=== PATIENT | male | born 1955 | race American Indian/Alaskan Native ===

== ENCOUNTER 2017-10-05 23:39 | Inpatient (IN) | payer MEDICAID, OTHER ==
[2017-10-06] MEDS ORDERED: Labetalol 5 mg/ml Inj 20ML IV STA (00:04)
[2017-10-06] MEDS ORDERED: Nitroglycerin 2% Ointment Foilpak UD TOP STA (00:05)
--- NOTE | 2017-10-06 00:12 | ED PDOC ---
Arrival/HPI - General Chief Complaint: Respiratory Distress Time Seen by Provider: 10/05/17 23:43 Historian: Patient, EMS - History of Present Illness Narrative History of Present Illness (Text): 10/06/17 00:22 62 year old male, with no significant past medical history, was brought in by EMS to the Emergency department for respiratory distress prior to arrival. As per ALS, patient was administered 2 tablets of sublingual nitroglycerin and later administered 40mcg/min nitroglycerin drip for a total of 2.6 mL in field. Patient was also administered 20mg of IV lasix and 2mg of IV versed in field. As per ALS, patient's BP on scene was 246/154. Patient is currently in mild respiratory distress and is unable to speak in full sentences. Patient denies any chest pain, abdominal pain, fever, chills, nausea, vomiting, diarrhea, trauma or any other complaints. Symptom Onset: Gradual Symptom Course: Unchanged Activities at Onset: Light Context: Home Past Medical History - Provider Review Nursing Documentation Reviewed: Yes - Infectious Disease Hx of Infectious Diseases: None - Psychiatric Hx Substance Use: No Family/Social History - Physician Review Nursing Documentation Reviewed: Yes Family/Social History: No Known Family HX Smoking Status: Heavy Smoker > 10 Cigarettes Daily Hx Alcohol Use: Yes Frequency of alcohol use: Few days per week Hx Substance Use: No Allergies/Home Meds Allergies/Adverse Reactions: Allergies No Known Allergies Allergy (Verified 10/06/17 00:02) Home Medications: Home Meds Medication Instructions Recorded Confirmed No Known Home Med 10/06/17 10/06/17 Review of Systems - Physician Review All systems were reviewed & negative as marked: Yes - Review of Systems Constitutional: Normal Eyes: Normal ENT: Normal Respiratory: SOB, Other (Respiratory distress ) Cardiovascular: Normal. absent: Chest Pain Gastrointestinal: Normal. absent: Abdominal Pain, Nausea, Vomiting Genitourinary Male: Normal Musculoskeletal: Normal Skin: Normal Neurological: Normal Endocrine: Normal Hemo/Lymphatic: Normal Psychiatric: Normal Physical Exam Vital Signs Reviewed: Yes Vital Signs Pulse Resp BP Pulse Ox 10/06/17 01:26 20 100 10/06/17 01:25 78 18 124/89 100 10/06/17 00:37 77 22 125/87 100 10/06/17 00:31 77 22 130/92 H 98 10/06/17 00:15 108 H 166/119 H 10/06/17 00:01 126 H 24 169/119 H 99 10/05/17 23:42 116 H 30 H 176/119 H 99 Blood Pressure: Hypertensive Pulse: Tachycardic Respiratory Rate: Tachypneic Appearance: Positive for: Other (Respiratory distress ) Pain Distress: None Mental Status: Positive for: Alert and Oriented X 3 - Systems Exam Head: Present: Atraumatic, Normocephalic Pupils: Present: PERRL Extroacular Muscles: Present: EOMI Conjunctiva: Present: Normal Mouth: Present: Moist Mucous Membranes Neck: Present: Normal Range of Motion Respiratory/Chest: Present: Respiratory Distress (Mild respiratory distress), Decreased Breath Sounds (bilaterally at bases ), Tachypneic. No: Accessory Muscle Use Cardiovascular: Present: Normal S1, S2, Tachycardic. No: Murmurs Abdomen: Present: Normal Bowel Sounds. No: Tenderness, Distention, Peritoneal Signs Back: Present: Normal Inspection Upper Extremity: Present: Normal Inspection. No: Cyanosis, Edema Lower Extremity: Present: Normal Inspection. No: Edema Neurological: Present: GCS=15, CN II-XII Intact Skin: Present: Warm, Dry, Normal Color. No: Rashes Psychiatric: Present: Alert, Oriented x 3, Normal Insight, Normal Concentration Medical Decision Making ED Course and Treatment: 10/06/17 00:15 Impression: 62 year old male presents to the Emergency department for respiratory distress. Plan: -- VBG -- Labs -- Chest X-ray -- Aspirin -- Nitroglycerin -- Trandate -- BIPAP/CPAP -- Reassess and disposition Progress Notes: 10/06/17 00:17 - Lab Interpretations Lab Results: 10/06/17 00:23 10/06/17 00:23 Lab Results 10/06/17 00:36: pCO2 39, pO2 107.0 H, HCO3 23.1, ABG pH 7.38, ABG Total CO2 24.3 , ABG O2 Saturation 98.9 H, ABG O2 Content 18.4, ABG Base Excess -1.8, ABG Hemoglobin 13.5, ABG Carboxyhemoglobin 1.9 H, POC ABG HHb (Measured) 1.1, ABG Methemoglobin 0.6, ABG O2 Capacity 18.6, Hgb O2 Saturation 96.4, FiO2 50.0 10/06/17 00:23: Sodium 143, Potassium 3.9, Chloride 106, Carbon Dioxide 24, Anion Gap 18, BUN 13, Creatinine 0.9, Est GFR ( Amer) > 60, Est GFR (Non- Af Amer) > 60, Random Glucose 206 H, Calcium 9.2, Total Bilirubin 0.7, AST 50, ALT 32, Alkaline Phosphatase 124, Troponin I 0.04, NT-Pro-B Natriuret Pep 6330 H , Total Protein 7.3, Albumin 4.0, Globulin 3.3, Albumin/Globulin Ratio 1.2 10/06/17 00:23: WBC 5.0, RBC 4.42, Hgb 13.7 L, Hct 42.2, MCV 95.5, MCH 31.0, MCHC 32.5, RDW 15.3 H, Plt Count 267, MPV 10.2, Gran % 56.6, Lymph % (Auto) 34.7 , [place] % (Auto) 7.5 H, Eos % (Auto) 1.0 L, Baso % (Auto) 0.2, Gran # 2.80, Lymph # 1.7, [place] # 0.4, Eos # 0.1, Baso # 0.01 - RAD Interpretation Radiology Orders: 10/06/17 00:02 CHEST PORTABLE [RAD] Stat - Medication Orders Current Medication Orders: Discontinued Medications Aspirin (Aspirin) 325 mg PO STAT STA Stop: 10/06/17 00:06 Last Admin: 10/06/17 00:18 Dose: 325 mg Labetalol HCl (Trandate) 20 mg IV STAT STA Stop: 10/06/17 00:05 Last Admin: 10/06/17 00:15 Dose: 20 mg eMAR Start Stop Document 10/06/17 00:15 SS (Rec: 10/06/17 00:30 SS [id number]) Intravenous Solution Start Date 10/06/17 Start Time 00:15 End Date 10/06/17 End time 00:17 Total Infusion Time 2 MAR Pulse and Blood Pressure Document 10/06/17 00:15 SS (Rec: 10/06/17 00:30 SS [id number]) Pulse Pulse Rate (60-90) 108 Blood Pressure Blood Pressure (100/60-150/90) 166/119 Nitroglycerin (Nitro-Bid 2% Oint) 1 ea TOP STAT STA Stop: 10/06/17 00:06 Last Admin: 10/06/17 00:28 Dose: 1 ea - Scribe Statement The provider has reviewed the documentation as recorded by the Scribe Dennis Burton. All medical record entries made by the Scribe were at my direction and personally dictated by me. I have reviewed the chart and agree that the record accurately reflects my personal performance of the history, physical exam, medical decision making, and the department course for this patient. I have also personally directed, reviewed, and agree with the discharge instructions and disposition. Disposition/Present on Arrival - Present on Arrival Any Indicators Present on Arrival: No History of DVT/PE: No History of Uncontrolled Diabetes: No Urinary Catheter: No History of Decub. Ulcer: No History Surgical Site Infection Following: None - Disposition Have Diagnosis and Disposition been Completed?: Yes Diagnosis: Pulmonary edema, Hypertension Disposition: HOSPITALIZED Disposition Time: 01:40 Patient Plan: Telemetry Condition: IMPROVED Forms: [facility] ([place])
[2017-10-06 00:39] LABS: ARTERIAL BLOOD GAS HCO3 23.1 mmol/L (21-28); ARTERIAL BLOOD GAS HEMOGLOBIN 13.5 g/dL (11.7-17.4); ARTERIAL BLOOD GAS O2 CAPACITY 18.6 mL/dl (16-24); ARTERIAL BLOOD GAS O2 CONTENT 18.4 ML/dl (15-23); ARTERIAL BLOOD GAS O2 SAT 98.9 % (95-98); ARTERIAL BLOOD GAS PCO2 39 mm/Hg (35-45); ARTERIAL BLOOD GAS PH 7.38 (7.35-7.45); ARTERIAL BLOOD GAS TCO2 24.3 mmol.L (22-28)
[2017-10-06 00:52] LABS: GRAN % 56.6 % (50.0-68.0); HEMOGLOBIN 13.7 g/dL (14.0-18.0); LYMPH % 34.7 % (22.0-35.0); MEAN CELL VOLUME 95.5 fl (80.0-105.0); MEAN CORPUSCULAR HGB CONC 32.5 g/dl (31.0-37.0); MEAN PLATELET VOLUME 10.2 fl (7.0-11.0); MONO % 7.5 % (1.0-6.0); RBC 4.42 10^6/uL (3.5-6.1); RED CELL DISTRIBUTION WIDTH 15.3 % (11.5-14.5)
[2017-10-06 00:53] LABS: BASO # 0.01 K/mm3 (0.0-2.0); BASO % 0.2 % (0.0-3.0); EOS # 0.1 (0.0-0.7); GRAN # 2.8 (1.4-6.5); LYMPH # 1.7 (1.2-3.4); MONO # 0.4 (0.1-0.6)
[2017-10-06 00:58] LABS: CALCIUM 9.2 mg/dL (8.4-10.5); GFR AFRICAN-AMERICAN > 60; GFR NON-AFRICAN AMERICAN > 60
[2017-10-06 01:09] LABS: B-TYPE NATRIURETIC PEPTIDE 6330 pg/mL (0-450); TROPONIN I 0.04 ng/mL
[2017-10-06 01:17] LABS: ALB/GLOB RATIO 1.2 (1.1-1.8); ALT/SGPT 32 U/L (7-56); AST/SGOT 50 U/L (17-59); BLOOD UREA NITROGEN 13 mg/dL (7-21)
--- NOTE | 2017-10-06 01:49 | CP.PCM.HP ---
<Kirt Albright - Last Filed: 10/06/17 02:07> History of Present Illness - History of Present Illness History of Present Illness: CC: SOB Subjective: HPI: Patient is a 62 year old male with no significant past medical history who presents to the emergency department for evaluation and treatment of SOB. Was visiting a friend in [place] from [place], [place] when his persistent cough led to worsening SOB. As per Ed physician, the patient was brought in by EMS from his friend's home where he was having difficulty breathing. He was found to have a BP of 246/154 and was started on a nitroglycerin drip, given lasix, and versed in the field. He was originally in respiratory distress and was placed on bipap and eventually moved to a venturi mask followed by a face mask. Patient is now able to speak in full sentences without feeling SOB. Admits to fever, chills and productive cough which began 1 week ago without any specific provoking events. Denies recent travel and sick contacts. Symptoms worsened since onset and became associated with [facility] in the past 2 days. Does not follow with PCP. Patient denies intractable headache, dizziness, blurry vision, ringing in the ears, abdominal pain, nausea, vomiting, diarrhea, constipation, and urinary symptoms. ROS: 12 point review of systems negative except as indicated in HPI PMHx: denies PSHx: denies Family Hx: noncontributory Social Hx: drink 1 pint of vodka on weekends and 1/2 pint on the weekdays for several years, smokes 1/3 ppd for 30 years, denies illicit drug use Medications: does not take medications at home PMD: does not have established PMD Pharmacy: does not fill medications Physical Examination: - Constitutional Appears: Non-toxic, No Acute Distress - Head Exam Head Exam: atraumatic, normocephalic - Eye Exam Eye Exam: Normal appearance, PERRL. absent: Scleral icterus - ENT Exam ENT Exam: Mucous Membranes Moist - Neck Exam Neck exam: Normal Inspection - Respiratory Exam Respiratory Exam: diminished breath sounds bilaterally, faint bibasilar crackles noted, Normal Breathing Pattern - Cardiovascular Exam Cardiovascular Exam: +S1, +S2. absent: Gallop, JVD - GI/Abdominal Exam GI & Abdominal Exam: Normal Bowel Sounds, absent: Distended, Guarding, Pulsatile Mass, Rebound, Rigid - Extremities Exam Extremities exam: Negative for: calf tenderness - Neurological Exam Neurological exam: Patient is awake, alert, responds to verbal stimuli, answers questions appropriately, follows commands, and moves extremities past midline - Psychiatric Exam Psychiatric exam: Normal Affect, Normal Mood - Skin Skin Exam: warm and dry Assessment and Plan: Patient is a 62 year old male with no significant past medical history who was admitted for evaluation and treatment of SOB. Hypertensive Emergency - BP controlled in ED after being given labetolol - lasix 20 IV q12 with hold parameters - prn hydralazine placed with hold parameters Presumed CHF Exacerbation - HR and BP reviewed, trended, and appreciated - bnp 6330 - strict i and o - daily weight - lasix 20mg IV q12 - ECHO pending - cardio isoezymes ordered and pending - cardiology consulted- appreciate recommendations Persumed COPD Exacerbation - xopenox and atorvent q4 scheduled - oxygen supplementation 2 L via NC - abg reviewed and appreciated, repeat abg in AM Ethanol Abuse, Potential Withdrawal - CIWA - ETOH level pending - high risk fall precautions - ativan 1mg q6 prn withdrawl symptoms - consider adding librium or geodon if sxs are not controlled - multivitamin, thiamine, and folate supplement Anemia - Hgb reviewed and appreciated - monitor closely via CBC Tobacco Abuse - nicotine patch offered - smoking cessation advised - patient education provided on dangers of tobacco abuse Prophylaxis - DVT ppx- scds - GI ppx- famotidine Patient case discussed with and plan approved by attending physician. Present on Admission - Present on Admission Any Indicators Present on Admission: No Past Patient History - Infectious Disease Hx of Infectious Diseases: None - Past Social History Smoking Status: Heavy Smoker > 10 Cigarettes Daily - PSYCHIATRIC Hx Substance Use: No Meds Allergies/Adverse Reactions: Allergies Allergy/AdvReac Type Severity Reaction Status Date / Time No Known Allergies Allergy Verified 10/06/17 00:02 Results - Vital Signs Recent Vital Signs: Last Vital Signs Temp Pulse 78 10/06/17 01:25 Resp 20 10/06/17 01:26 BP 124/89 10/06/17 01:25 Pulse Ox 100 10/06/17 01:26 - Labs Result Diagrams: 10/06/17 00:23 10/06/17 00:23 Labs: Laboratory Results - last 24 hr 10/06/17 10/06/17 10/06/17 00:23 00:23 00:36 WBC 5.0 RBC 4.42 Hgb 13.7 L Hct 42.2 MCV 95.5 MCH 31.0 MCHC 32.5 RDW 15.3 H Plt Count 267 MPV 10.2 Gran % 56.6 Lymph % (Auto) 34.7 [place] % (Auto) 7.5 H Eos % (Auto) 1.0 L Baso % (Auto) 0.2 Gran # 2.80 Lymph # 1.7 [place] # 0.4 Eos # 0.1 Baso # 0.01 pCO2 39 pO2 107.0 H HCO3 23.1 ABG pH 7.38 ABG Total CO2 24.3 ABG O2 Saturation 98.9 H ABG O2 Content 18.4 ABG Base Excess -1.8 ABG Hemoglobin 13.5 ABG Carboxyhemoglobin 1.9 H POC ABG HHb (Measured) 1.1 ABG Methemoglobin 0.6 ABG O2 Capacity 18.6 Hgb O2 Saturation 96.4 FiO2 50.0 Sodium 143 Potassium 3.9 Chloride 106 Carbon Dioxide 24 Anion Gap 18 BUN 13 Creatinine 0.9 Est GFR ( Amer) > 60 Est GFR (Non-Af Amer) > 60 Random Glucose 206 H Calcium 9.2 Total Bilirubin 0.7 AST 50 ALT 32 Alkaline Phosphatase 124 Troponin I 0.04 NT-Pro-B Natriuret Pep 6330 H Total Protein 7.3 Albumin 4.0 Globulin 3.3 Albumin/Globulin Ratio 1.2 <Naida Howell - Last Filed: 10/06/17 03:16> Results - Vital Signs Recent Vital Signs: Last Vital Signs Temp Pulse 78 10/06/17 01:25 Resp 20 10/06/17 01:26 BP 124/89 10/06/17 01:25 Pulse Ox 100 10/06/17 01:26 - Labs Result Diagrams: 10/06/17 00:23 10/06/17 00:23 Attending/Attestation - Attestation I have personally seen and examined this patient.: Yes I have fully participated in the care of the patient.: Yes I have reviewed all pertinent clinical information: Yes Notes (Text): 10/06/17 03:15 Patient was seen when he was in bed # 7 in the ER. Agree with history,physical examination, assessment and plan.
[2017-10-06] MEDS ORDERED: Influenza Vaccine 60 mcg/0.5 mL SYR (4YR UP) IM ONE (03:45)
[2017-10-06 06:38] LABS: BASO # 0.01 K/mm3 (0.0-2.0); BASO % 0.2 % (0.0-3.0); EOS % 0.3 % (1.5-5.0); GRAN # 4.11 (1.4-6.5); GRAN % 63.5 % (50.0-68.0); LYMPH # 1.8 (1.2-3.4); LYMPH % 28.4 % (22.0-35.0); MEAN CELL VOLUME 94.8 fl (80.0-105.0); MEAN CORPUSCULAR HEMOGLOBIN 30.7 pg (25.0-35.0); MEAN CORPUSCULAR HGB CONC 32.4 g/dl (31.0-37.0); MEAN PLATELET VOLUME 10.1 fl (7.0-11.0); MONO # 0.5 (0.1-0.6); MONO % 7.6 % (1.0-6.0); RBC 4.23 10^6/uL (3.5-6.1); RED CELL DISTRIBUTION WIDTH 15.2 % (11.5-14.5); WHITE BLOOD COUNT 6.5 10^3/ul (4.5-11.0)
[2017-10-06 07:06] LABS: TROPONIN I 0.05 ng/mL
[2017-10-06 07:12] LABS: ALB/GLOB RATIO 1.2 (1.1-1.8); ALBUMIN 3.5 g/dL (3.0-4.8); ALT/SGPT 32 U/L (7-56); AST/SGOT 37 U/L (17-59); BLOOD UREA NITROGEN 14 mg/dL (7-21); GFR AFRICAN-AMERICAN > 60; GFR NON-AFRICAN AMERICAN > 60; HDL CHOLESTEROL 36 mg/dL (29-60); MAGNESIUM 1.7 mg/dL (1.7-2.2)
[2017-10-06 07:19] LABS: LDL CHOLESTEROL 124 mg/dL (0-129)
[2017-10-06] MEDS: Levalbuterol 1.25 MG/3 ML Inhal Soln UD IH SCH ×3 (08:18→19:37)
[2017-10-06] MEDS: Ipratropium 0.02% Inhal Soln (0.5 mg/2.5 ml) UD IH SCH ×3 (08:18→19:37)
--- NOTE | 2017-10-06 08:35 | RAD ---
HISTORY: Shortness of breath COMPARISON: No prior. FINDINGS: LUNGS: There is severe pulmonary venous congestion and mild interstitial pulmonary edema. There is bibasilar airspace disease. PLEURA: Suspect small pleural effusions, no pneumothorax apparent. CARDIOVASCULAR: Severe cardiomegaly. OSSEOUS STRUCTURES: No significant abnormalities. VISUALIZED UPPER ABDOMEN: Normal. OTHER FINDINGS: None. IMPRESSION: Severe cardiomegaly, severe pulmonary venous congestion with interstitial pulmonary edema and suspected pleural effusions concerning for congestive heart failure. Bibasilar airspace disease may represent atelectasis however superimposed pneumonia cannot be excluded. Follow-up is advised.
[2017-10-06] MEDS: Multivitamin Therapeutic Tab PO SCH (10:13)
--- NOTE | 2017-10-06 10:18 | CARD ---
APPROVED REPORT EKG Measurement Heart [id number] <Conclusion> Sinus tachycardia Left atrial enlargement Left ventricular hypertrophy T wave abnormality, consider lateral ischemia Prolonged QTc
[2017-10-06 12:03] LABS: HEPATITIS B SURFACE AG NEGATIVE (NEGATIVE)
[2017-10-06 12:08] LABS: HEPATITIS A IGM NEGATIVE (NEGATIVE); HEPATITIS B CORE AB Negative (NEGATIVE)
[2017-10-06 12:20] LABS: HEPATITIS C ANTIBODY Negative (NEGATIVE)
--- NOTE | 2017-10-06 14:56 | CARD ---
APPROVED REPORT EKG Measurement Heart [id number] <Conclusion> Sinus rhythm with premature atrial complexes Possible Left atrial enlargement LAD Left ventricular hypertrophy T wave abnormality, consider lateral ischemia Prolonged QT
--- NOTE | 2017-10-06 19:35 | CON ---
DATE: 10/06/2017 INDICATIONS: Hypertensive emergency, congestive heart failure. HISTORY OF PRESENT ILLNESS: This is a 62-year-old man who came to the Emergency Room with acute shortness of breath. 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 He is extremely hypertensive. He was treated in the field and in the Emergency Room. His blood pressure is improved. He is no longer symptomatic on telemetry, resting comfortably in bed this morning. He was given IV Lasix, nitroglycerin drip, IV hydralazine. He complained of a sudden onset of symptoms, shortness of breath with coughing and some cough related to chest discomfort. There was no syncope, presyncope, lightheadedness, dizziness or vertigo. No palpitations, edema or claudication. No fever, chills, hemoptysis, abdominal pain, nausea, vomiting, diarrhea, constipation, or melena. PAST MEDICAL HISTORY: Limited. It does not appear that he is under the care of the physician for any particular medical problems. He was on no medications. He denies myocardial infarction, congestive heart failure, arrhythmia, stroke, TIA, diabetes, and gout. MEDICATIONS: None. ALLERGIES: NO KNOWN MEDICATION ALLERGIES. SOCIAL HISTORY: He is a smoker. He drinks vodka on a daily basis. He lives at home. He is ambulatory. FAMILY HISTORY: Noncontributory. REVIEW OF SYSTEMS: A 10-point review of system is unremarkable except as noted above. PHYSICAL EXAMINATION: GENERAL: He is a well-developed male, lying in bed on telemetry, in no acute distress. VITAL SIGNS: This morning include sinus rhythm at 82 beats per minute. He is afebrile. Blood pressure 141/90, respirations 20, O2 sat 100% on a face mask and now nasal cannula. HEENT: Reveals no neck vein distension, thyromegaly, or carotid bruits. Mucous membranes are moist. Conjunctivae pink. NECK: Supple. LUNGS: Lung jacobson scattered rhonchi, few rales at the bases. HEART: Revealed normal first and second heart sounds. ABDOMEN: Soft. Bowel sounds present. No mass, organomegaly, tenderness, rebound, or guarding. No CVA tenderness. No palpable abdominal aortic aneurysm. EXTREMITIES: Reveals no cyanosis, clubbing, or edema. NEUROLOGIC: He was awake, alert, and oriented. PSYCHIATRIC: Normal as to mood and affect. SKIN: Warm and dry. No rashes or cellulitis. LABORATORY AND IMAGING: EKG demonstrates sinus tachycardia with LVH, ST-T wave changes. No prior EKG for comparison. A chest x-ray reveals cardiomegaly, pulmonary venous congestion, possible pleural effusions, bilateral airspace disease. White count normal, hemoglobin 13, hematocrit 40.1, platelet count normal. Blood gas is noted. Electrolytes, BUN, creatinine, blood sugar, LFTs unremarkable. Troponin is negative x2. BNP 6330. Lipids unremarkable with a LDL of 124. Alcohol was less than 10. IMPRESSION: Gonzalo Sutton is a 62-year-old man who presents with acute shortness of breath associated with cough related chest discomfort with pulmonary edema, accelerated hypertension, which responded to therapy. He is much improved this morning. Blood pressure is better. His breathing is better. Cardiac enzymes have been unremarkable. His EKG is abnormal consistent with left ventricular hypertrophy. Chest x-ray shows cardiomegaly and congestive heart failure. At this time, I agree with current plans. We will check an echocardiogram. I will add metoprolol and amlodipine. He is getting IV Lasix. He received labetalol. He is getting Xopenex, thiamine, Pepcid and nicotine patch. He is getting folic acid and ipratropium. He received an aspirin in the Emergency Room. We will monitor Is and Os. I will repeat a troponin and an EKG. I will follow along with you and make additional recommendations based on his clinical course. He should be on no added salt diet. He should stop smoking and drinking alcohol. Gilson Redman MD [facility]
[2017-10-07] MEDS: Ipratropium 0.02% Inhal Soln (0.5 mg/2.5 ml) UD IH SCH ×4 (03:40→21:15)
[2017-10-07] MEDS: Levalbuterol 1.25 MG/3 ML Inhal Soln UD IH SCH ×4 (03:40→21:15)
[2017-10-07 07:20] LABS: ALB/GLOB RATIO 1.2 (1.1-1.8); ALBUMIN 3.5 g/dL (3.0-4.8); ALT/SGPT 38 U/L (7-56); AST/SGOT 29 U/L (17-59); BLOOD UREA NITROGEN 21 mg/dL (7-21); GFR AFRICAN-AMERICAN > 60; GFR NON-AFRICAN AMERICAN > 60
[2017-10-07] MEDS: Multivitamin Therapeutic Tab PO SCH (07:53)
[2017-10-07] MEDS ORDERED: Potassium Chloride 40 mEq/30 ml LIQ UD PO ONE (08:06)
--- NOTE | 2017-10-07 08:51 | CP.PCM.PN ---
Subjective - Date & Time of Evaluation Date of Evaluation: 10/07/17 Time of Evaluation: 07:00 - Subjective Subjective: +Stable on 2R. No CP or SOB. V/S noted. BP high at times. V/S noted. RSR PE: Lungs: few rhonchi Cor.: S1S2 Abd.: soft Ext.: no edema Neuro.: alert I/O= 360/300 recorded Labs noted: K+= 3.5 BC X 2 NG at 24 hrs. Echo done: will review. Prelim: severe LVD Objective - Vital Signs/Intake and Output Vital Signs (last 24 hours): Temp Pulse Resp BP Pulse Ox 98 F 77 20 143/100 H 100 10/07/17 06:00 10/07/17 06:00 10/07/17 06:00 10/07/17 06:00 10/07/17 00:01 Intake and Output: 10/07/17 10/07/17 06:59 18:59 Intake Total 360 Output Total 300 Balance 60 - Medications Medications: Current Medications Amlodipine Besylate (Norvasc) 5 mg PO DAILY [facility] Last Admin: 10/06/17 10:14 Dose: 5 mg Famotidine (Pepcid) 40 mg PO HS [facility] Last Admin: 10/06/17 22:13 Dose: 40 mg Folic Acid (Folic Acid) 1 mg PO DAILY [facility] Last Admin: 10/06/17 10:13 Dose: 1 mg Furosemide (Lasix) 20 mg IVP Q12 [facility] Last Admin: 10/06/17 22:11 Dose: 20 mg Hydralazine HCl (Apresoline) 10 mg IVP Q6 PRN PRN Reason: Systolic Blood Pressure Ipratropium Mcgraw (Atrovent) 0.5 mg IH [id number] [facility] Last Admin: 10/07/17 08:04 Dose: 0.5 mg Levalbuterol HCl (Xopenex) 1.25 mg IH [id number] [facility] Last Admin: 10/07/17 08:04 Dose: 1.25 mg Lorazepam (Ativan) 1 mg IVP Q6H PRN; Protocol PRN Reason: Symptoms of alcohol withdrawl Metoprolol Tartrate (Lopressor) 25 mg PO BID [facility] Last Admin: 10/06/17 18:26 Dose: 25 mg Multivitamins (Thera Tab) 1 tab PO 0800 [facility] Last Admin: 10/07/17 07:53 Dose: 1 tab Nicotine (Nicoderm Cq) 1 patch TD DAILY PRN PRN Reason: URGE TO SMOKE Thiamine HCl (Vitamin B1 Tab) 100 mg PO DAILY [facility] Last Admin: 10/06/17 10:13 Dose: 100 mg - Labs Labs: 10/06/17 06:00 10/07/17 06:00 Assessment and Plan - Assessment and Plan (Free Text) Assessment: Acute Dyspnea with CHF, accelerated Hypertension CCM: hypertensive vs ETOH related, R/O CAD Plan: Increase amlodipine to 10/day PO KCL D/C tobacco and ETOH OOB as jose d. Nuclear stress test>Monday F/U CXR
[2017-10-07] MEDS: Potassium Chloride 20 mEq ER Tab PO SCH (09:52)
--- NOTE | 2017-10-07 10:06 | CARD ---
APPROVED REPORT EXAM: Two-dimensional and M-mode echocardiogram with Doppler and color Doppler. Other Information Quality : AverageRhythm : INDICATION CHF, HBP 2D DIMENSIONS IVSd1.3 (0.7-1.1cm)LVDd5.7 (3.9-5.9cm) PWd1.3 (0.7-1.1cm)LVDs4.9 (2.5-4.0cm) FS (%) 15.0 %LVEF (%)30.0 (>50%) M-Mode DIMENSIONS Left Atrium (MM)4.20 (2.5-4.0cm)Aortic Root3.10 (2.2-3.7cm) Aortic Cusp Exc.1.90 (1.5-2.0cm) Aortic Valve AoV Peak Oswnjtau68.5cm/s Mitral Valve MV E Qvptrmlw442.0cm/sMV E Peak Gr.88mmHgMV A Mlwqxsyn01.2cm/s E/A ratio2.8 TDI Lateral E' Peak V4.49cm/sMedial E' Peak V4.20cm/sE/Lateral E'34.3 E/Medial E'36.7 Tricuspid Valve TR Peak [id number]/sRAP [id number] Peak Gr.45mmHg [id number] LEFT VENTRICLE The left ventricle is normal size. There is mild concentric left ventricular hypertrophy. Left ventricle systolic function is severely impaired. The Ejection Fraction is 25-30%. RIGHT VENTRICLE The right ventricle is normal size. ATRIA The left atrium is moderately dilated. The right atrium is moderately dilated. The interatrial septum is intact with no evidence for an atrial septal defect. AORTIC VALVE The aortic valve is mildly to moderately calcified. MITRAL VALVE The mitral valve is normal in structure. The mitral valve is moderately thickened but opens well. Mitral regurgitation is moderate. TRICUSPID VALVE The tricuspid valve is normal in structure. There is moderate tricuspid regurgitation. There is moderate pulmonary hypertension. PULMONIC VALVE The pulmonic valve is not well visualized. There is trace pulmonic valvular regurgitation. GREAT VESSELS The aortic root is normal in size. PERICARDIAL EFFUSION There is no pericardial effusion. <Conclusion> The left ventricle is normal size. There is mild concentric left ventricular hypertrophy. Left ventricle systolic function is severely impaired. The Ejection Fraction is 25-30%. Mitral regurgitation is moderate. There is moderate tricuspid regurgitation. There is moderate pulmonary hypertension.
--- NOTE | 2017-10-07 11:52 | CP.PCM.PN ---
<Starr Mariee - Last Filed: 10/07/17 14:28> Subjective - Date & Time of Evaluation Date of Evaluation: 10/07/17 Time of Evaluation: 11:50 - Subjective Subjective: PGY-2 Progress note for hospitalist service Patient was seen and examined at bedside, no acute distress. Patient states that he has not been getting out of bed and can not access if his sob has improved. He is tolerating diet. Objective - Vital Signs/Intake and Output Vital Signs (last 24 hours): Temp Pulse Resp BP Pulse Ox 98 F 74 18 152/83 H 97 10/07/17 06:00 10/07/17 09:58 10/07/17 09:00 10/07/17 09:58 10/07/17 09:00 Intake and Output: 10/07/17 10/07/17 06:59 18:59 Intake Total 360 Output Total 300 Balance 60 - Medications Medications: Current Medications Amlodipine Besylate (Norvasc) 10 mg PO DAILY [facility] Last Admin: 10/07/17 09:58 Dose: 10 mg Famotidine (Pepcid) 40 mg PO HS [facility] Last Admin: 10/06/17 22:13 Dose: 40 mg Folic Acid (Folic Acid) 1 mg PO DAILY [facility] Last Admin: 10/07/17 09:51 Dose: 1 mg Furosemide (Lasix) 20 mg IVP Q12 [facility] Last Admin: 10/07/17 09:51 Dose: 20 mg Hydralazine HCl (Apresoline) 10 mg IVP Q6 PRN PRN Reason: Systolic Blood Pressure Ipratropium [place] (Atrovent) 0.5 mg IH [id number] [facility] Last Admin: 10/07/17 08:04 Dose: 0.5 mg Levalbuterol HCl (Xopenex) 1.25 mg IH [id number] [facility] Last Admin: 10/07/17 08:04 Dose: 1.25 mg Lorazepam (Ativan) 1 mg IVP Q6H PRN; Protocol PRN Reason: Symptoms of alcohol withdrawl Metoprolol Tartrate (Lopressor) 25 mg PO BID [facility] Last Admin: 10/07/17 09:51 Dose: 25 mg Multivitamins (Thera Tab) 1 tab PO 0800 [facility] Last Admin: 10/07/17 07:53 Dose: 1 tab Nicotine (Nicoderm Cq) 1 patch TD DAILY PRN PRN Reason: URGE TO SMOKE Last Admin: 10/07/17 09:51 Dose: 1 patch Potassium Chloride (K-Dur 20 Meq Er Tab) 30 meq PO BRK [facility] Last Admin: 10/07/17 09:52 Dose: 30 meq Thiamine HCl (Vitamin B1 Tab) 100 mg PO DAILY [facility] Last Admin: 10/07/17 09:51 Dose: 100 mg - Labs Labs: 10/06/17 06:00 10/07/17 06:00 - Constitutional Appears: No Acute Distress - Head Exam Head Exam: ATRAUMATIC, NORMAL INSPECTION, NORMOCEPHALIC - Eye Exam Eye Exam: EOMI, Normal appearance - ENT Exam ENT Exam: Mucous Membranes Moist - Respiratory Exam Respiratory Exam: Clear to Ausculation Bilateral, NORMAL BREATHING PATTERN. absent: Rhonchi, Wheezes, Respiratory Distress - Cardiovascular Exam Cardiovascular Exam: REGULAR RHYTHM, +S1, +S2. absent: Tachycardia, Murmur - GI/Abdominal Exam GI & Abdominal Exam: Soft, Normal Bowel Sounds. absent: Distended, Tenderness, Hyperactive Bowel Sounds - Neurological Exam Neurological Exam: Alert, Awake, Oriented x3 - Skin Skin Exam: Dry, Intact, Normal Color, Warm Assessment and Plan - Assessment and Plan (Free Text) Assessment: Patient is a 62 year old male with no significant past medical history who was admitted for evaluation and treatment of SOB secondary to chf and possible copd exacerbation Plan: Hypertensive Emergency - BP controlled in ED after being given labetolol - started on norvasc 10 and lopressor 25 bid - continue lasix 20 IV q12 with hold parameters - prn hydralazine placed with hold parameters CHF Exacerbation - cxr on admission severe cardiomegaly, severe pulmonary venous congestion concerning for chf, bibaslier airway diseases can not r/o pne - repeat cxr showed decreased vascular congestion - HR and BP reviewed, trended, and appreciated - bnp [id number] - strict i and o - daily weight - continue lasix 20mg IV q12 - ECHO EF of 30%, mild concentric left ventricular hypertrophy, moderate TR and pulm HTN - cardio trops 0.04, 0.05 - cardiology consulted- appreciate recommendations Persumed COPD Exacerbation - xopenox and atorvent q4 scheduled - oxygen supplementation 2 L via NC - abg reviewed and appreciated Ethanol Abuse, Potential Withdrawal - CIWA - ETOH level low - high risk fall precautions - ativan 1mg q6 prn withdrawal symptoms,patient has not required any dosage - multivitamin, thiamine, and folate supplement Anemia - Hgb reviewed and appreciated - monitor closely via CBC Tobacco Abuse - nicotine patch offered - smoking cessation advised - patient education provided on dangers of tobacco abuse Prophylaxis - DVT ppx- scds - GI ppx- famotidine <Demetra Payne A - Last Filed: 10/07/17 14:58> Objective - Vital Signs/Intake and Output Vital Signs (last 24 hours): Temp Pulse Resp BP Pulse Ox 97.9 F 79 20 126/81 97 10/07/17 12:00 10/07/17 12:00 10/07/17 12:00 10/07/17 12:00 10/07/17 09:00 Intake and Output: 10/07/17 10/07/17 06:59 18:59 Intake Total 360 Output Total 300 Balance 60 - Medications Medications: Current Medications Amlodipine Besylate (Norvasc) 10 mg PO DAILY [facility] Last Admin: 10/07/17 09:58 Dose: 10 mg Famotidine (Pepcid) 40 mg PO HS [facility] Last Admin: 10/06/17 22:13 Dose: 40 mg Folic Acid (Folic Acid) 1 mg PO DAILY [facility] Last Admin: 10/07/17 09:51 Dose: 1 mg Furosemide (Lasix) 20 mg IVP Q12 [facility] Last Admin: 10/07/17 09:51 Dose: 20 mg Hydralazine HCl (Apresoline) 10 mg IVP Q6 PRN PRN Reason: Systolic Blood Pressure Ipratropium [place] (Atrovent) 0.5 mg IH [id number] [facility] Last Admin: 10/07/17 13:45 Dose: 0.5 mg Levalbuterol HCl (Xopenex) 1.25 mg IH [id number] [facility] Last Admin: 10/07/17 13:45 Dose: 1.25 mg Lorazepam (Ativan) 1 mg IVP Q6H PRN; Protocol PRN Reason: Symptoms of alcohol withdrawl Metoprolol Tartrate (Lopressor) 25 mg PO BID [facility] Last Admin: 10/07/17 09:51 Dose: 25 mg Multivitamins (Thera Tab) 1 tab PO 0800 [facility] Last Admin: 10/07/17 07:53 Dose: 1 tab Nicotine (Nicoderm Cq) 1 patch TD DAILY PRN PRN Reason: URGE TO SMOKE Last Admin: 10/07/17 09:51 Dose: 1 patch Potassium Chloride (K-Dur 20 Meq Er Tab) 30 meq PO BRK [facility] Last Admin: 10/07/17 09:52 Dose: 30 meq Thiamine HCl (Vitamin B1 Tab) 100 mg PO DAILY [facility] Last Admin: 10/07/17 09:51 Dose: 100 mg - Labs Labs: 10/06/17 06:00 10/07/17 06:00 Attending/Attestation - Attestation I have personally seen and examined this patient.: Yes I have fully participated in the care of the patient.: Yes I have reviewed all pertinent clinical information, including history, physical exam and plan: Yes Notes (Text): 10/07/17 14:54 62 year old male with no significant past medical history who presented with shortness of breath. Probnp was elevated. CXR showed severe pulmonary venous congestion. He was started on iv lasix for acute CHF exacerbation. Echocardiogram reviewed which shows EF 25-30%. Repeat CXR today reviewed shows improved congestion. Cardiology is following the plan. He also presented with uncontrolled hypertension. He is currently on norvasc and lopressor. He was counselled on alcohol abstinence. Continue with ativan prn for withdrawal symptoms. Continue with multivitamin, folic acid and thiamine. Will replete and repeat potassium. Demetra Payne MD Hospitalist.
--- NOTE | 2017-10-07 13:46 | RAD ---
HISTORY: CHF COMPARISON: Yesterday TECHNIQUE: Chest PA and lateral FINDINGS: LUNGS: There is interval improvement in aeration bilaterally from prior study. PLEURA: No significant pleural effusion identified. No pneumothorax apparent. CARDIOVASCULAR: There is decreased vascular congestion from prior study. Heart is still moderately enlarged. OSSEOUS STRUCTURES: No significant abnormalities. VISUALIZED UPPER ABDOMEN: Normal. OTHER FINDINGS: None. IMPRESSION: Decreased vascular congestion with moderate improvement in aeration.
[2017-10-07] MEDS ORDERED: Vancomycin 1gm in NS 250ml 1 GM/250 ML BAG IVPB STA (18:20)
[2017-10-08] MEDS: Ipratropium 0.02% Inhal Soln (0.5 mg/2.5 ml) UD IH SCH ×4 (03:10→20:59)
[2017-10-08] MEDS: Levalbuterol 1.25 MG/3 ML Inhal Soln UD IH SCH ×4 (03:10→20:59)
[2017-10-08 06:56] LABS: BASO # 0.02 K/mm3 (0.0-2.0); BASO % 0.4 % (0.0-3.0); EOS # 0.1 (0.0-0.7); EOS % 0.9 % (1.5-5.0); GRAN # 2.77 (1.4-6.5); GRAN % 50.4 % (50.0-68.0); HEMOGLOBIN 13.4 g/dL (14.0-18.0); LYMPH # 2.2 (1.2-3.4); LYMPH % 40.7 % (22.0-35.0); MEAN CELL VOLUME 93.8 fl (80.0-105.0); MEAN CORPUSCULAR HEMOGLOBIN 30.8 pg (25.0-35.0); MEAN CORPUSCULAR HGB CONC 32.8 g/dl (31.0-37.0); MEAN PLATELET VOLUME 10.2 fl (7.0-11.0); MONO # 0.4 (0.1-0.6); MONO % 7.6 % (1.0-6.0); RBC 4.35 10^6/uL (3.5-6.1); RED CELL DISTRIBUTION WIDTH 14.7 % (11.5-14.5); WHITE BLOOD COUNT 5.5 10^3/ul (4.5-11.0)
[2017-10-08 07:12] LABS: ALB/GLOB RATIO 1.2 (1.1-1.8); ALBUMIN 3.6 g/dL (3.0-4.8); ALT/SGPT 31 U/L (7-56); AST/SGOT 34 U/L (17-59); BLOOD UREA NITROGEN 21 mg/dL (7-21); CALCIUM 9.6 mg/dL (8.4-10.5); GFR AFRICAN-AMERICAN > 60; GFR NON-AFRICAN AMERICAN > 60
--- NOTE | 2017-10-08 07:25 | CP.PCM.PN ---
<Starr Mariee - Last Filed: 10/08/17 13:49> Subjective - Date & Time of Evaluation Date of Evaluation: 10/08/17 Time of Evaluation: 08:30 - Subjective Subjective: PGY-2 progress note for hospitalist service Patient seen and examined at bedside. No acute distress. Per nurse no acute events over night. Patient does not have any complaints. He states that his shortness of breath has improved. He is tolerating his diet. Objective - Vital Signs/Intake and Output Vital Signs (last 24 hours): Temp Pulse Resp BP Pulse Ox 98.1 F 75 18 132/85 98 10/08/17 06:00 10/08/17 06:00 10/08/17 06:00 10/08/17 06:00 10/08/17 06:00 Intake and Output: 10/08/17 10/08/17 06:59 18:59 Intake Total 490 Output Total 1420 Balance -930 - Medications Medications: Current Medications Amlodipine Besylate (Norvasc) 10 mg PO DAILY [facility] Last Admin: 10/07/17 09:58 Dose: 10 mg Famotidine (Pepcid) 40 mg PO HS [facility] Last Admin: 10/07/17 21:29 Dose: 40 mg Folic Acid (Folic Acid) 1 mg PO DAILY [facility] Last Admin: 10/07/17 09:51 Dose: 1 mg Furosemide (Lasix) 20 mg IVP Q12 [facility] Last Admin: 10/07/17 21:30 Dose: 20 mg Hydralazine HCl (Apresoline) 10 mg IVP Q6 PRN PRN Reason: Systolic Blood Pressure Ipratropium [place] (Atrovent) 0.5 mg IH [id number] [facility] Last Admin: 10/07/17 21:15 Dose: 0.5 mg Levalbuterol HCl (Xopenex) 1.25 mg IH [id number] [facility] Last Admin: 10/07/17 21:15 Dose: 1.25 mg Lorazepam (Ativan) 1 mg IVP Q6H PRN; Protocol PRN Reason: Symptoms of alcohol withdrawl Metoprolol Tartrate (Lopressor) 25 mg PO BID [facility] Last Admin: 10/07/17 17:23 Dose: 25 mg Multivitamins (Thera Tab) 1 tab PO 0800 [facility] Last Admin: 10/07/17 07:53 Dose: 1 tab Nicotine (Nicoderm Cq) 1 patch TD DAILY PRN PRN Reason: URGE TO SMOKE Last Admin: 10/07/17 09:51 Dose: 1 patch Potassium Chloride (K-Dur 20 Meq Er Tab) 30 meq PO BRK [facility] Last Admin: 10/07/17 09:52 Dose: 30 meq Thiamine HCl (Vitamin B1 Tab) 100 mg PO DAILY [facility] Last Admin: 10/07/17 09:51 Dose: 100 mg - Labs Labs: 10/06/17 06:00 10/08/17 06:30 - Constitutional Appears: No Acute Distress - Head Exam Head Exam: ATRAUMATIC, NORMAL INSPECTION, NORMOCEPHALIC - Eye Exam Eye Exam: EOMI, Normal appearance - ENT Exam ENT Exam: Mucous Membranes Moist - Respiratory Exam Respiratory Exam: Rhonchi, NORMAL BREATHING PATTERN. absent: Respiratory Distress - Cardiovascular Exam Cardiovascular Exam: REGULAR RHYTHM, +S1, +S2. absent: Tachycardia, Murmur - GI/Abdominal Exam GI & Abdominal Exam: Soft, Normal Bowel Sounds. absent: Distended, Firm, Tenderness - Extremities Exam Extremities Exam: Normal Inspection. absent: Pedal Edema - Neurological Exam Neurological Exam: Alert, Awake, Oriented x3 - Skin Skin Exam: Dry, Intact, Normal Color, Warm Assessment and Plan - Assessment and Plan (Free Text) Assessment: Patient is a 62 year old male with no significant past medical history who was admitted for evaluation and treatment of SOB secondary to chf and possible copd exacerbation found to have HTN emergency Plan: Hypertensive Emergency - BP controlled - started on norvasc 10 and lopressor 25 bid - continue lasix 20 IV q12 with hold parameters - prn hydralazine placed with hold parameters CHF Exacerbation - cxr on admission severe cardiomegaly, severe pulmonary venous congestion concerning for chf, bibaslier airway diseases can not r/o pne - repeat cxr showed decreased vascular congestion - HR and BP reviewed, trended, and appreciated - bnp [id number] - strict i and o - daily weight - continue lasix 20mg IV q12 - ECHO EF of 30%, mild concentric left ventricular hypertrophy, moderate TR and pulm HTN - cardio trops 0.04, 0.05 - cardiology consulted- recommend nuclear stress test monday Persumed COPD Exacerbation - xopenox and atorvent q4 scheduled - oxygen supplementation 2 L via NC - abg reviewed and appreciated questionable bactremia - positive blood culture in 1 bottle, gram positive cocci coagulase negative - most likely contamination, 2nd bottle negative - 1 dose vancomycin given - repeat blood cultures Ethanol Abuse, Potential Withdrawal - CIWA - ETOH level low - high risk fall precautions - ativan 1mg q6 prn withdrawal symptoms, - multivitamin, thiamine, and folate supplement Anemia - Hgb reviewed and appreciated, stable - continue monitor closely via CBC Tobacco Abuse - nicotine patch offered - smoking cessation advised - patient education provided on dangers of tobacco abuse Prophylaxis - DVT ppx- scds - GI ppx- famotidine <Demetra Panye - Last Filed: 10/08/17 14:22> Objective - Vital Signs/Intake and Output Vital Signs (last 24 hours): Temp Pulse Resp BP Pulse Ox 98.8 F 75 20 137/76 98 10/08/17 12:00 10/08/17 13:55 10/08/17 12:00 10/08/17 12:00 10/08/17 06:00 Intake and Output: 10/08/17 10/08/17 06:59 18:59 Intake Total 490 Output Total 1420 Balance -930 - Medications Medications: Current Medications Amlodipine Besylate (Norvasc) 10 mg PO DAILY [facility] Last Admin: 10/08/17 08:58 Dose: 10 mg Famotidine (Pepcid) 40 mg PO HS [facility] Last Admin: 10/07/17 21:29 Dose: 40 mg Folic Acid (Folic Acid) 1 mg PO DAILY [facility] Last Admin: 10/08/17 08:57 Dose: 1 mg Furosemide (Lasix) 40 mg PO DAILY [facility] Last Admin: 10/08/17 08:58 Dose: 40 mg Ipratropium [place] (Atrovent) 0.5 mg IH [id number] [facility] Last Admin: 10/08/17 13:47 Dose: 0.5 mg Levalbuterol HCl (Xopenex) 1.25 mg IH [id number] [facility] Last Admin: 10/08/17 13:47 Dose: 1.25 mg Lorazepam (Ativan) 1 mg IVP Q6H PRN; Protocol PRN Reason: Symptoms of alcohol withdrawl Metoprolol Tartrate (Lopressor) 25 mg PO BID [facility] Last Admin: 10/08/17 08:58 Dose: 25 mg Multivitamins (Thera Tab) 1 tab PO 0800 [facility] Last Admin: 10/08/17 08:01 Dose: 1 tab Nicotine (Nicoderm Cq) 1 patch TD DAILY PRN PRN Reason: URGE TO SMOKE Last Admin: 10/07/17 09:51 Dose: 1 patch Potassium Chloride (K-Dur 20 Meq Er Tab) 30 meq PO BRK [facility] Last Admin: 10/08/17 08:01 Dose: 30 meq Thiamine HCl (Vitamin B1 Tab) 100 mg PO DAILY [facility] Last Admin: 10/08/17 08:59 Dose: 100 mg - Labs Labs: 10/08/17 06:30 10/08/17 06:30 Attending/Attestation - Attestation I have personally seen and examined this patient.: Yes I have fully participated in the care of the patient.: Yes I have reviewed all pertinent clinical information, including history, physical exam and plan: Yes Notes (Text): 10/08/17 14:20 62 year old male with no significant past medical history who presented with shortness of breath. Probnp was elevated. CXR showed severe pulmonary venous congestion. He was started on iv lasix for acute CHF exacerbation. Echocardiogram reviewed which shows EF 25-30%. His symptoms have improved and he was switched to po lasix today. Cardiology is following the plan and plan is for stress test tomorrow. He also presented with uncontrolled hypertension. He is currently on norvasc and lopressor. He was counselled on alcohol abstinence. Continue with ativan prn for withdrawal symptoms. Continue with multivitamin, folic acid and thiamine. Demetra Payne MD Hospitalist.
[2017-10-08] MEDS: Multivitamin Therapeutic Tab PO SCH (08:01)
[2017-10-08] MEDS: Potassium Chloride 20 mEq ER Tab PO SCH (08:01)
--- NOTE | 2017-10-08 08:36 | CP.PCM.PN ---
Subjective - Date & Time of Evaluation Date of Evaluation: 10/08/17 Time of Evaluation: 07:00 - Subjective Subjective: Stable on 2R. No CP or SOB. V/S noted. V/S noted. RSR PE: Lungs: few rhonchi Cor.: S1S2 Abd.: soft Ext.: no edema Neuro.: alert I/O= 1270/1820 recorded Labs noted: CBC, CMP OK BC X 1 + GPC Echo: mod/ severe LVD, mod MR, TR and PH. CXR 10/07 : improved CHF Objective - Vital Signs/Intake and Output Vital Signs (last 24 hours): Temp Pulse Resp BP Pulse Ox 98.1 F 75 18 132/85 98 10/08/17 06:00 10/08/17 06:00 10/08/17 06:00 10/08/17 06:00 10/08/17 06:00 Intake and Output: 10/08/17 10/08/17 06:59 18:59 Intake Total 490 Output Total 1420 Balance -930 - Medications Medications: Current Medications Amlodipine Besylate (Norvasc) 10 mg PO DAILY [facility] Last Admin: 10/07/17 09:58 Dose: 10 mg Famotidine (Pepcid) 40 mg PO HS [facility] Last Admin: 10/07/17 21:29 Dose: 40 mg Folic Acid (Folic Acid) 1 mg PO DAILY [facility] Last Admin: 10/07/17 09:51 Dose: 1 mg Furosemide (Lasix) 20 mg IVP Q12 [facility] Last Admin: 10/07/17 21:30 Dose: 20 mg Hydralazine HCl (Apresoline) 10 mg IVP Q6 PRN PRN Reason: Systolic Blood Pressure Ipratropium [place] (Atrovent) 0.5 mg IH [id number] [facility] Last Admin: 10/08/17 07:57 Dose: 0.5 mg Levalbuterol HCl (Xopenex) 1.25 mg IH [id number] [facility] Last Admin: 10/08/17 07:57 Dose: 1.25 mg Lorazepam (Ativan) 1 mg IVP Q6H PRN; Protocol PRN Reason: Symptoms of alcohol withdrawl Metoprolol Tartrate (Lopressor) 25 mg PO BID [facility] Last Admin: 10/07/17 17:23 Dose: 25 mg Multivitamins (Thera Tab) 1 tab PO 0800 [facility] Last Admin: 10/08/17 08:01 Dose: 1 tab Nicotine (Nicoderm Cq) 1 patch TD DAILY PRN PRN Reason: URGE TO SMOKE Last Admin: 10/07/17 09:51 Dose: 1 patch Potassium Chloride (K-Dur 20 Meq Er Tab) 30 meq PO BRK [facility] Last Admin: 10/08/17 08:01 Dose: 30 meq Thiamine HCl (Vitamin B1 Tab) 100 mg PO DAILY [facility] Last Admin: 10/07/17 09:51 Dose: 100 mg - Labs Labs: 10/08/17 06:30 10/08/17 06:30 Assessment and Plan - Assessment and Plan (Free Text) Assessment: Acute Dyspnea with CHF, accelerated Hypertension CCM: hypertensive vs ETOH related, R/O CAD Daily vodka drinker Smoker Plan: Continue amlodipine 10/day, metoprolol 25 BID IV > PO Lasix PO KCL D/C tobacco and ETOH OOB as jose d. Nuclear stress test>Monday
[2017-10-09] MEDS: Levalbuterol 1.25 MG/3 ML Inhal Soln UD IH SCH ×4 (02:20→20:03)
[2017-10-09] MEDS: Ipratropium 0.02% Inhal Soln (0.5 mg/2.5 ml) UD IH SCH ×4 (02:20→20:03)
[2017-10-09 06:32] LABS: BASO # 0.01 K/mm3 (0.0-2.0); BASO % 0.2 % (0.0-3.0); EOS % 0.8 % (1.5-5.0); GRAN # 2.32 (1.4-6.5); GRAN % 47.7 % (50.0-68.0); HEMOGLOBIN 13.5 g/dL (14.0-18.0); LYMPH % 41.6 % (22.0-35.0); MEAN CELL VOLUME 94.1 fl (80.0-105.0); MEAN CORPUSCULAR HEMOGLOBIN 30.6 pg (25.0-35.0); MEAN CORPUSCULAR HGB CONC 32.5 g/dl (31.0-37.0); MEAN PLATELET VOLUME 10.2 fl (7.0-11.0); MONO # 0.5 (0.1-0.6); MONO % 9.7 % (1.0-6.0); RBC 4.41 10^6/uL (3.5-6.1); RED CELL DISTRIBUTION WIDTH 14.8 % (11.5-14.5); WHITE BLOOD COUNT 4.9 10^3/ul (4.5-11.0)
[2017-10-09 06:59] LABS: ALB/GLOB RATIO 1.1 (1.1-1.8); ALBUMIN 3.6 g/dL (3.0-4.8); ALT/SGPT 32 U/L (7-56); AST/SGOT 24 U/L (17-59); BLOOD UREA NITROGEN 20 mg/dL (7-21); CALCIUM 9.7 mg/dL (8.4-10.5); GFR AFRICAN-AMERICAN > 60; GFR NON-AFRICAN AMERICAN > 60
[2017-10-09] MEDS: Multivitamin Therapeutic Tab PO SCH ×2 (07:20→10:44)
[2017-10-09] MEDS: Potassium Chloride 20 mEq ER Tab PO SCH ×2 (07:20→10:42)
--- NOTE | 2017-10-09 08:00 | CP.PCM.PN ---
Subjective - Date & Time of Evaluation Date of Evaluation: 10/09/17 Time of Evaluation: 07:00 - Subjective Subjective: Stable on 2R. No CP or SOB. V/S noted. RSR PE: Lungs: few rhonchi Cor.: S1S2 Abd.: soft Ext.: no edema Neuro.: alert I/O= 1500/2250 recorded Labs noted: CBC, CMP OK BC X 1 + GPC Echo: mod/ severe LVD, mod MR, TR and PH. CXR 10/07 : improved CHF Objective - Vital Signs/Intake and Output Vital Signs (last 24 hours): Temp Pulse Resp BP Pulse Ox 97.8 F 76 20 121/73 95 10/09/17 05:50 10/09/17 05:50 10/09/17 05:50 10/09/17 05:50 10/09/17 05:50 Intake and Output: 10/09/17 10/09/17 06:59 18:59 Output Total 700 Balance -700 - Medications Medications: Current Medications Amlodipine Besylate (Norvasc) 10 mg PO DAILY [facility] Last Admin: 10/08/17 08:58 Dose: 10 mg Famotidine (Pepcid) 40 mg PO HS [facility] Last Admin: 10/08/17 21:11 Dose: 40 mg Folic Acid (Folic Acid) 1 mg PO DAILY [facility] Last Admin: 10/08/17 08:57 Dose: 1 mg Furosemide (Lasix) 40 mg PO DAILY [facility] Last Admin: 10/08/17 08:58 Dose: 40 mg Ipratropium [place] (Atrovent) 0.5 mg IH [id number] [facility] 234 [facility]S [facility] Last Admin: 10/09/17 02:20 Dose: 0.5 mg Levalbuterol HCl (Xopenex) 1.25 mg IH [id number] [facility]S [facility] Last Admin: 10/09/17 02:20 Dose: 1.25 mg Lorazepam (Ativan) 1 mg IVP Q6H PRN; Protocol PRN Reason: Symptoms of alcohol withdrawl Metoprolol Tartrate (Lopressor) 25 mg PO BID [facility] Last Admin: 10/08/17 17:55 Dose: 25 mg Multivitamins (Thera Tab) 1 tab PO 0800 [facility] Last Admin: 10/09/17 07:20 Dose: Not Given Nicotine (Nicoderm Cq) 1 patch TD DAILY PRN PRN Reason: URGE TO SMOKE Last Admin: 10/07/17 09:51 Dose: 1 patch Potassium Chloride (K-Dur 20 Meq Er Tab) 30 meq PO BRK [facility] Last Admin: 10/09/17 07:20 Dose: Not Given Thiamine HCl (Vitamin B1 Tab) 100 mg PO DAILY [facility] Last Admin: 10/08/17 08:59 Dose: 100 mg - Labs Labs: 10/09/17 05:30 10/09/17 05:30 Assessment and Plan - Assessment and Plan (Free Text) Assessment: Acute Dyspnea with CHF, accelerated hypertension CCM: hypertensive vs ETOH related, R/O CAD Daily vodka drinker Smoker Plan: Continue amlodipine 10/day, metoprolol 25 BID PO Lasix PO KCL D/C tobacco and ETOH OOB as jose d. Nuclear stress test>today
--- NOTE | 2017-10-09 10:52 | CP.PCM.PN ---
<Sae Desir - Last Filed: 10/10/17 11:30> Subjective - Date & Time of Evaluation Date of Evaluation: 10/09/17 Time of Evaluation: 06:00 - Subjective Subjective: patient seen and examined bedside. no issues overnight. Patient denies shortness of breath, cough, chest pain or any other complaints. patient aware of stress test later on today. Objective - Vital Signs/Intake and Output Vital Signs (last 24 hours): Temp Pulse Resp BP Pulse Ox 97.8 F 70 20 133/85 95 10/09/17 05:50 10/09/17 10:44 10/09/17 05:50 10/09/17 10:44 10/09/17 05:50 Intake and Output: 10/09/17 10/09/17 06:59 18:59 Output Total 700 Balance -700 - Medications Medications: Current Medications Amlodipine Besylate (Norvasc) 10 mg PO DAILY [facility] Last Admin: 10/09/17 10:44 Dose: 10 mg Famotidine (Pepcid) 40 mg PO HS [facility] Last Admin: 10/08/17 21:11 Dose: 40 mg Folic Acid (Folic Acid) 1 mg PO DAILY [facility] Last Admin: 10/09/17 10:42 Dose: 1 mg Furosemide (Lasix) 40 mg PO DAILY [facility] Last Admin: 10/09/17 10:43 Dose: 40 mg Ipratropium [place] (Atrovent) 0.5 mg IH [id number] [facility] Last Admin: 10/09/17 07:59 Dose: Not Given Levalbuterol HCl (Xopenex) 1.25 mg IH [id number] [facility] Last Admin: 10/09/17 07:59 Dose: Not Given Lorazepam (Ativan) 1 mg IVP Q6H PRN; Protocol PRN Reason: Symptoms of alcohol withdrawl Metoprolol Tartrate (Lopressor) 25 mg PO BID [facility] Last Admin: 10/09/17 10:43 Dose: 25 mg Multivitamins (Thera Tab) 1 tab PO 0800 [facility] Last Admin: 10/09/17 10:44 Dose: 1 tab Nicotine (Nicoderm Cq) 1 patch TD DAILY PRN PRN Reason: URGE TO SMOKE Last Admin: 10/07/17 09:51 Dose: 1 patch Potassium Chloride (K-Dur 20 Meq Er Tab) 30 meq PO BRK [facility] Last Admin: 10/09/17 10:42 Dose: 30 meq Thiamine HCl (Vitamin B1 Tab) 100 mg PO DAILY [facility] Last Admin: 10/09/17 10:45 Dose: 100 mg - Labs Labs: 10/09/17 05:30 10/09/17 05:30 - Constitutional Appears: Non-toxic, No Acute Distress - Head Exam Head Exam: ATRAUMATIC, NORMAL INSPECTION, NORMOCEPHALIC - Eye Exam Eye Exam: Normal appearance - ENT Exam ENT Exam: Mucous Membranes Moist - Neck Exam Neck Exam: absent: Lymphadenopathy, Tenderness - Respiratory Exam Respiratory Exam: Clear to Ausculation Bilateral, NORMAL BREATHING PATTERN - Cardiovascular Exam Cardiovascular Exam: REGULAR RHYTHM - Neurological Exam Neurological Exam: Alert, Awake, Oriented x3 Assessment and Plan - Assessment and Plan (Free Text) Assessment: Patient is a 62 year old male with no significant past medical history who was admitted for evaluation and treatment of SOB secondary to chf and possible copd exacerbation found to have HTN emergency Plan: Hypertensive Emergency - BP controlled - norvasc 10 and lopressor 25 bid - continue lasix 20 IV q12 with hold parameters - prn hydralazine placed with hold parameters CHF Exacerbation - cxr on admission severe cardiomegaly, severe pulmonary venous congestion concerning for chf, bibaslier airway diseases can not r/o pne - repeat cxr showed decreased vascular congestion - HR and BP reviewed, trended, and appreciated - bnp 6330 - strict i and o - daily weight - continue lasix 20mg IV q12 - ECHO EF of 30%, mild concentric left ventricular hypertrophy, moderate TR and pulm HTN - cardio trops 0.04, 0.05 - cardiology consulted-nuclear stress test today Persumed COPD Exacerbation - xopenox and atorvent q4 scheduled - oxygen supplementation 2 L via NC - abg reviewed and appreciated Ethanol Abuse, Potential Withdrawal - no evidence of withdrawals currently - CIWA - ETOH level low - high risk fall precautions - ativan 1mg q6 prn withdrawal symptoms, - multivitamin, thiamine, and folate supplement Anemia - Hgb reviewed and appreciated, stable - continue monitor closely via CBC Tobacco Abuse - nicotine patch offered - smoking cessation advised - patient education provided on dangers of tobacco abuse Prophylaxis - DVT ppx- scds - GI ppx- famotidine <Mary Sethi - Last Filed: 10/10/17 15:35> Objective - Vital Signs/Intake and Output Vital Signs (last 24 hours): Temp Pulse Resp BP Pulse Ox 98.1 F 77 18 132/82 100 10/10/17 11:59 10/10/17 14:00 10/10/17 11:59 10/10/17 11:59 10/10/17 06:00 Intake and Output: 10/10/17 10/10/17 06:59 18:59 Intake Total 180 Output Total 700 Balance -520 - Medications Medications: Current Medications Amlodipine Besylate (Norvasc) 10 mg PO DAILY [facility] Last Admin: 10/10/17 10:59 Dose: 10 mg Famotidine (Pepcid) 40 mg PO HS [facility] Last Admin: 10/09/17 23:17 Dose: 40 mg Folic Acid (Folic Acid) 1 mg PO DAILY [facility] Last Admin: 10/10/17 10:57 Dose: 1 mg Furosemide (Lasix) 40 mg PO DAILY [facility] Last Admin: 10/10/17 10:58 Dose: 40 mg Ipratropium [place] (Atrovent) 0.5 mg IH [id number] [facility] Last Admin: 10/10/17 13:26 Dose: 0.5 mg Levalbuterol HCl (Xopenex) 1.25 mg IH [id number] [facility] Last Admin: 10/10/17 13:26 Dose: 1.25 mg Lorazepam (Ativan) 1 mg IVP Q6H PRN; Protocol PRN Reason: Symptoms of alcohol withdrawl Metoprolol Tartrate (Lopressor) 25 mg PO BID [facility] Last Admin: 10/10/17 10:58 Dose: 25 mg Multivitamins (Thera Tab) 1 tab PO 0800 [facility] Last Admin: 10/10/17 08:39 Dose: 1 tab Nicotine (Nicoderm Cq) 1 patch TD DAILY PRN PRN Reason: URGE TO SMOKE Last Admin: 10/07/17 09:51 Dose: 1 patch Potassium Chloride (K-Dur 20 Meq Er Tab) 30 meq PO BRK [facility] Last Admin: 10/10/17 08:40 Dose: 30 meq Thiamine HCl (Vitamin B1 Tab) 100 mg PO DAILY [facility] Last Admin: 10/10/17 10:59 Dose: 100 mg - Labs Labs: 10/10/17 05:20 10/10/17 05:20 Attending/Attestation - Attestation I have personally seen and examined this patient.: Yes I have fully participated in the care of the patient.: Yes I have reviewed all pertinent clinical information, including history, physical exam and plan: Yes Notes (Text): 10/10/17 15:31 Patient was seen and examined with registered medical transcriptionist.Agreed with assessment and plan.Family is at bed side. 62 year old male with PMH of smoking and alcohol abuse was admitted with shortness of breath. Probnp was elevated. CXR showed severe pulmonary venous congestion. He was started on iv lasix for acute CHF exacerbation. Echocardiogram reviewed which shows EF 25-30%.His symptoms improved and he was switched to po lasix .He is euvolemic today and underwent stress test.We will follow up result of stress test.. Blood pressure is better controlled with current medication. He was counselled on alcohol abstinence. Management plan was discussed in detail with patient .Education was provided.Need reinforcement.
--- NOTE | 2017-10-09 20:32 | CARD ---
APPROVED REPORT Protocol: JOHN Test Type: Sestamibi Stress Test Attending Physician: Dr. Gilson Redman Referring Physician: Dr. Ember Martinez Test Indications: CHF, CCM. Height:5 ft 8 in Weight:124lbs Medications: norvasc, pepcid, folic acid, lasix, atrovent, xopenex, ativan, metoprolol, multi-vitamin, nicoderm Cq, K-quang, vitamin B1 Medical History: 62 y/o male smoker with recent CHF, CCM, HBP and daily alcohol consumption. Target HR: 158 bpm Resting ECG: RSR, LVH Resting Heart Rate: 71 bpm Resting Blood Pressure: 140/82mmHg Submaximum (85%): 134 bpm POST EXERCISE Reason for Termination: Fatigue Dyspnea Target HR: No Max HR: 136 bpm 87% of Maximum Predicted HR: 158 bpm Exercise duration: 09:46 min:sec, 4 Stage Exercise capacity: 11.3METs Max Blood Pressure: 168/94mmHg Blood Pressure response to exercise: Normal Heart Rate response to exercise: Normal Chest Pain: No, None Angina index: 0 Arrhythmia: No, None ST Change: No, None Deviation: 0 mm TEST SUMMARY [id number]/.4. [id number]/[id number]. EXERCISESTAGE [id number]/90.0. EXERCISESTAGE 203:[id number]/82.0. EXERCISESTAGE 303:[id number]/88.0. EXERCISESTAGE 400:[id number]:14 Contrast agent administered [id number]/[id number]. INTERPRETATION Stress EKG Conclusion: Symptom limited stress test which was negative for chest pain, ischemia and arrhythmia. Normal functional capacity. Nuclear scans pending. Signed by Gilson Redman Electronically Approved: 10/09/2017 10:49:15 EXAM: Myocardial Perfusion REST/STRESS Stress Test Type: Exercise Treadmill Imaging Protocol Rest Spect myocardial perfusion imaging was performed in supine position 45 minutes following the injection of 10.8 mCi of Tc-99 Myoview. At peak stress, the patient was injected intravenously with 30.4mCi of Tc-99 tetrofosmin after an exercise time of 9 minutes and 46 seconds. Gated Stress Spect was performed 75 minutes after intravenous Tc-99 Myoview injection. The images were gated to evaluate regional wall motion and calculate ventricular ejection fraction.Images were reconstructed using backfilter projection method in short horizontal and verticle long axis. Spect slices were generated. LV Perfusion The quality of the study is good. The left ventricle is markedly enlarged in size. The right ventricle is unremarkable. The lung uptake is normal. The distribution of tracer reveals a large area of moderately to severely decreased perfusion involving distal anteroseptal , apical and mid to distal inferior arredondo on the stress study. The remainder of the LV myocardium is unremarkable. The rest myocardial perfusion study shows no significant impovement of the defects. Wall Motion Gated wall motion study shows apical and inferior akinesis and diffuse hypokinesis in the remainder of the left ventricle. LVEF = 20%. Conclusion 1. Abnormal SPECT myocardial perfusion study. 2. Fixed, distal anteroseptal, apical and inferior defects are suggestive of myocardial injury/infarct. 3. Portion of inferior defect could be due to diaphragmatic attenuation. 4. Severe LV dysfunction with apical and inferior akinesis and diffuse hypokinsis in the remaidner of the let ventricle.
[2017-10-10] MEDS: Levalbuterol 1.25 MG/3 ML Inhal Soln UD IH SCH ×4 (02:45→20:28)
[2017-10-10] MEDS: Ipratropium 0.02% Inhal Soln (0.5 mg/2.5 ml) UD IH SCH ×4 (02:45→20:28)
[2017-10-10 06:27] LABS: BASO # 0.02 K/mm3 (0.0-2.0); BASO % 0.5 % (0.0-3.0); EOS % 0.8 % (1.5-5.0); GRAN # 1.92 (1.4-6.5); GRAN % 48.5 % (50.0-68.0); HEMOGLOBIN 13.7 g/dL (14.0-18.0); LYMPH # 1.6 (1.2-3.4); LYMPH % 40.4 % (22.0-35.0); MEAN CELL VOLUME 93.5 fl (80.0-105.0); MEAN CORPUSCULAR HEMOGLOBIN 30.5 pg (25.0-35.0); MEAN CORPUSCULAR HGB CONC 32.6 g/dl (31.0-37.0); MEAN PLATELET VOLUME 9.8 fl (7.0-11.0); MONO # 0.4 (0.1-0.6); MONO % 9.8 % (1.0-6.0); RBC 4.49 10^6/uL (3.5-6.1); RED CELL DISTRIBUTION WIDTH 14.8 % (11.5-14.5)
[2017-10-10 07:23] LABS: ALB/GLOB RATIO 1.2 (1.1-1.8); ALBUMIN 3.7 g/dL (3.0-4.8); ALT/SGPT 27 U/L (7-56); AST/SGOT 31 U/L (17-59); BLOOD UREA NITROGEN 19 mg/dL (7-21); CALCIUM 9.3 mg/dL (8.4-10.5); GFR AFRICAN-AMERICAN > 60; GFR NON-AFRICAN AMERICAN > 60
--- NOTE | 2017-10-10 08:32 | CP.PCM.PN ---
Subjective - Date & Time of Evaluation Date of Evaluation: 10/10/17 Time of Evaluation: 07:00 - Subjective Subjective: Stable on 2R. No CP or SOB. V/S noted. RSR. PE: Lungs: clear Cor.: S1S2 Abd.: soft Ext.: no edema Neuro.: alert I/O= 180/700 recorded Labs today noted Nuclear stress report noted: Fixed A-S, Apical and inf. defects c/w IA. LV EF = 20% Objective - Vital Signs/Intake and Output Vital Signs (last 24 hours): Temp Pulse Resp BP Pulse Ox 99.1 F 83 18 116/71 100 10/10/17 06:00 10/10/17 06:00 10/10/17 06:00 10/10/17 06:00 10/10/17 06:00 Intake and Output: 10/10/17 10/10/17 06:59 18:59 Intake Total 180 Output Total 700 Balance -520 - Medications Medications: Current Medications Amlodipine Besylate (Norvasc) 10 mg PO DAILY [facility] Last Admin: 10/09/17 10:44 Dose: 10 mg Famotidine (Pepcid) 40 mg PO HS [facility] Last Admin: 10/09/17 23:17 Dose: 40 mg Folic Acid (Folic Acid) 1 mg PO DAILY [facility] Last Admin: 10/09/17 10:42 Dose: 1 mg Furosemide (Lasix) 40 mg PO DAILY [facility] Last Admin: 10/09/17 10:43 Dose: 40 mg Ipratropium [place] (Atrovent) 0.5 mg IH [id number] [facility] Last Admin: 10/10/17 08:15 Dose: 0.5 mg Levalbuterol HCl (Xopenex) 1.25 mg IH [id number] [facility] Last Admin: 10/10/17 08:15 Dose: 1.25 mg Lorazepam (Ativan) 1 mg IVP Q6H PRN; Protocol PRN Reason: Symptoms of alcohol withdrawl Metoprolol Tartrate (Lopressor) 25 mg PO BID [facility] Last Admin: 10/09/17 17:01 Dose: 25 mg Multivitamins (Thera Tab) 1 tab PO 0800 [facility] Last Admin: 10/09/17 10:44 Dose: 1 tab Nicotine (Nicoderm Cq) 1 patch TD DAILY PRN PRN Reason: URGE TO SMOKE Last Admin: 10/07/17 09:51 Dose: 1 patch Potassium Chloride (K-Dur 20 Meq Er Tab) 30 meq PO BRK [facility] Last Admin: 10/09/17 10:42 Dose: 30 meq Thiamine HCl (Vitamin B1 Tab) 100 mg PO DAILY [facility] Last Admin: 10/09/17 10:45 Dose: 100 mg - Labs Labs: 10/10/17 05:20 10/10/17 05:20 Assessment and Plan - Assessment and Plan (Free Text) Assessment: Acute Dyspnea with CHF, accelerated hypertension CCM: hypertensive vs ETOH related, R/O CAD Daily vodka drinker Smoker Plan: Cardiac cath/Possible PCI tomorrow. Continue amlodipine 10/day, metoprolol 25 BID PO Lasix PO KCL D/C tobacco and ETOH OOB as jose d. Additional recs to follow cath.
[2017-10-10] MEDS: Multivitamin Therapeutic Tab PO SCH (08:39)
[2017-10-10] MEDS: Potassium Chloride 20 mEq ER Tab PO SCH (08:40)
--- NOTE | 2017-10-10 11:38 | CP.PCM.PN ---
<Sae Desir - Last Filed: 10/10/17 11:47> Subjective - Date & Time of Evaluation Date of Evaluation: 10/10/17 Time of Evaluation: 06:00 - Subjective Subjective: Patient seen and evaluated bedside. no acute issues overnight. Patient denies any chest pain, shortness of breath, nausea, vomiting or any other complaints. Patient aware of positive stress test yesterday and plan for cardiac cath tomorrow. Objective - Vital Signs/Intake and Output Vital Signs (last 24 hours): Temp Pulse Resp BP Pulse Ox 99.1 F 82 18 112/60 100 10/10/17 06:00 10/10/17 10:59 10/10/17 06:00 10/10/17 10:59 10/10/17 06:00 Intake and Output: 10/10/17 10/10/17 06:59 18:59 Intake Total 180 Output Total 700 Balance -520 - Medications Medications: Current Medications Amlodipine Besylate (Norvasc) 10 mg PO DAILY [facility] Last Admin: 10/10/17 10:59 Dose: 10 mg Famotidine (Pepcid) 40 mg PO HS [facility] Last Admin: 10/09/17 23:17 Dose: 40 mg Folic Acid (Folic Acid) 1 mg PO DAILY [facility] Last Admin: 10/10/17 10:57 Dose: 1 mg Furosemide (Lasix) 40 mg PO DAILY [facility] Last Admin: 10/10/17 10:58 Dose: 40 mg Ipratropium [place] (Atrovent) 0.5 mg IH [id number] [facility] Last Admin: 10/10/17 08:15 Dose: 0.5 mg Levalbuterol HCl (Xopenex) 1.25 mg IH [id number] [facility] Last Admin: 10/10/17 08:15 Dose: 1.25 mg Lorazepam (Ativan) 1 mg IVP Q6H PRN; Protocol PRN Reason: Symptoms of alcohol withdrawl Metoprolol Tartrate (Lopressor) 25 mg PO BID [facility] Last Admin: 10/10/17 10:58 Dose: 25 mg Multivitamins (Thera Tab) 1 tab PO 0800 [facility] Last Admin: 10/10/17 08:39 Dose: 1 tab Nicotine (Nicoderm Cq) 1 patch TD DAILY PRN PRN Reason: URGE TO SMOKE Last Admin: 10/07/17 09:51 Dose: 1 patch Potassium Chloride (K-Dur 20 Meq Er Tab) 30 meq PO BRK [facility] Last Admin: 10/10/17 08:40 Dose: 30 meq Thiamine HCl (Vitamin B1 Tab) 100 mg PO DAILY [facility] Last Admin: 10/10/17 10:59 Dose: 100 mg - Labs Labs: 10/10/17 05:20 10/10/17 05:20 - Constitutional Appears: Non-toxic, No Acute Distress - Eye Exam Eye Exam: EOMI, Normal appearance - ENT Exam ENT Exam: Mucous Membranes Moist - Neck Exam Neck Exam: absent: Lymphadenopathy, Tenderness - Respiratory Exam Respiratory Exam: Clear to Ausculation Bilateral, NORMAL BREATHING PATTERN - Cardiovascular Exam Cardiovascular Exam: REGULAR RHYTHM, +S1, +S2 - GI/Abdominal Exam GI & Abdominal Exam: Soft - Neurological Exam Neurological Exam: Alert, Awake, Oriented x3 Assessment and Plan - Assessment and Plan (Free Text) Assessment: Patient is a 62 year old male with no significant past medical history who was admitted for evaluation and treatment of SOB secondary to chf and possible copd exacerbation found to have HTN emergency Plan: Hypertensive Emergency - BP controlled - norvasc 10 and lopressor 25 bid - lasix 40 PO daily CHF Exacerbation - cxr on admission severe cardiomegaly, severe pulmonary venous congestion concerning for chf, bibaslier airway diseases can not r/o pne - repeat cxr showed decreased vascular congestion - HR and BP reviewed, trended, and appreciated - bnp 6330 - strict i and o - daily weight - lasix 40 PO daily - ECHO EF of 30%, mild concentric left ventricular hypertrophy, moderate TR and pulm HTN - cardiology consulted-nuclear stress test positive form yesterday, will have cardiac cath tomorrow Persumed COPD Exacerbation - xopenox and atorvent q4 scheduled - oxygen supplementation 2 L via NC - abg reviewed and appreciated Ethanol Abuse, Potential Withdrawal - no evidence of withdrawals currently - CIWA - ETOH level low - high risk fall precautions - ativan 1mg q6 prn withdrawal symptoms, - multivitamin, thiamine, and folate supplement Anemia - Hgb reviewed and appreciated, stable - continue monitor closely via CBC Tobacco Abuse - nicotine patch offered - smoking cessation advised - patient education provided on dangers of tobacco abuse Prophylaxis - DVT ppx- scds - GI ppx- famotidine <Mary Sethi - Last Filed: 10/10/17 15:38> Objective - Vital Signs/Intake and Output Vital Signs (last 24 hours): Temp Pulse Resp BP Pulse Ox 98.1 F 77 18 132/82 100 10/10/17 11:59 10/10/17 14:00 10/10/17 11:59 10/10/17 11:59 10/10/17 06:00 Intake and Output: 10/10/17 10/10/17 06:59 18:59 Intake Total 180 Output Total 700 Balance -520 - Medications Medications: Current Medications Amlodipine Besylate (Norvasc) 10 mg PO DAILY [facility] Last Admin: 10/10/17 10:59 Dose: 10 mg Famotidine (Pepcid) 40 mg PO HS [facility] Last Admin: 10/09/17 23:17 Dose: 40 mg Folic Acid (Folic Acid) 1 mg PO DAILY [facility] Last Admin: 10/10/17 10:57 Dose: 1 mg Furosemide (Lasix) 40 mg PO DAILY [facility] Last Admin: 10/10/17 10:58 Dose: 40 mg Ipratropium [place] (Atrovent) 0.5 mg IH [id number] [facility] Last Admin: 10/10/17 13:26 Dose: 0.5 mg Levalbuterol HCl (Xopenex) 1.25 mg IH [id number] [facility] Last Admin: 10/10/17 13:26 Dose: 1.25 mg Lorazepam (Ativan) 1 mg IVP Q6H PRN; Protocol PRN Reason: Symptoms of alcohol withdrawl Metoprolol Tartrate (Lopressor) 25 mg PO BID [facility] Last Admin: 10/10/17 10:58 Dose: 25 mg Multivitamins (Thera Tab) 1 tab PO 0800 [facility] Last Admin: 10/10/17 08:39 Dose: 1 tab Nicotine (Nicoderm Cq) 1 patch TD DAILY PRN PRN Reason: URGE TO SMOKE Last Admin: 10/07/17 09:51 Dose: 1 patch Potassium Chloride (K-Dur 20 Meq Er Tab) 30 meq PO BRK [facility] Last Admin: 10/10/17 08:40 Dose: 30 meq Thiamine HCl (Vitamin B1 Tab) 100 mg PO DAILY [facility] Last Admin: 10/10/17 10:59 Dose: 100 mg - Labs Labs: 10/10/17 05:20 10/10/17 05:20 Attending/Attestation - Attestation I have personally seen and examined this patient.: Yes I have fully participated in the care of the patient.: Yes I have reviewed all pertinent clinical information, including history, physical exam and plan: Yes Notes (Text): 10/10/17 15:36 Patient was seen and examined with durable medical equipment repairer.Agreed with assessment and plan. 62 year old male with PMH of smoking and alcohol abuse was admitted with shortness of breath. Probnp was elevated. CXR showed severe pulmonary venous congestion. He was started on iv lasix for acute CHF exacerbation. Echocardiogram reviewed which shows EF 25-30%.His symptoms improved and he was switched to po lasix .He is euvolemic .He underwent stress test yesterday that showed fix mario septal and inferior wall defect.Patient is scheduled for cardiac catherization tomorrow by cardiology Blood pressure is better controlled with current medication. He was counselled on alcohol abstinence.There is no sign of alcohol withdrawal at this time. Management plan was discussed in detail with patient .Education was provided.Need reinforcement.
[2017-10-11] MEDS: Levalbuterol 1.25 MG/3 ML Inhal Soln UD IH SCH ×4 (01:36→20:00)
[2017-10-11] MEDS: Ipratropium 0.02% Inhal Soln (0.5 mg/2.5 ml) UD IH SCH ×4 (01:36→20:00)
[2017-10-11 07:20] LABS: BASO # 0.01 K/mm3 (0.0-2.0); BASO % 0.3 % (0.0-3.0); GRAN # 1.93 (1.4-6.5); GRAN % 48.1 % (50.0-68.0); HEMOGLOBIN 14.5 g/dL (14.0-18.0); LYMPH # 1.6 (1.2-3.4); LYMPH % 39.8 % (22.0-35.0); MEAN CELL VOLUME 91.4 fl (80.0-105.0); MEAN CORPUSCULAR HEMOGLOBIN 31.1 pg (25.0-35.0); MEAN PLATELET VOLUME 9.6 fl (7.0-11.0); MONO # 0.4 (0.1-0.6); MONO % 10.8 % (1.0-6.0); RBC 4.66 10^6/uL (3.5-6.1); RED CELL DISTRIBUTION WIDTH 14.7 % (11.5-14.5)
[2017-10-11 07:41] LABS: ALB/GLOB RATIO 1.2 (1.1-1.8); ALT/SGPT 30 U/L (7-56); AST/SGOT 27 U/L (17-59); BLOOD UREA NITROGEN 17 mg/dL (7-21); CALCIUM 9.9 mg/dL (8.4-10.5); GFR AFRICAN-AMERICAN > 60; GFR NON-AFRICAN AMERICAN > 60
[2017-10-11] MEDS: Multivitamin Therapeutic Tab PO SCH ×2 (07:50→11:26)
[2017-10-11] MEDS: Potassium Chloride 20 mEq ER Tab PO SCH ×2 (07:50→11:24)
[2017-10-11] MEDS ORDERED: Lidocaine 2% Inj (20ml) ONE (07:59)
[2017-10-11] MEDS ORDERED: Phenylephrine 10 mg/ml Inj ONE (07:59)
[2017-10-11] MEDS ORDERED: Iodixanol 320 MG/ML 100 ML BOTTLE IV ONE (08:00)
[2017-10-11] MEDS ORDERED: Nitroglycerin 50mg in D5W 0 MG/0 ML BOTTLE IV ONE (08:00)
[2017-10-11] MEDS ORDERED: Iodixanol 320 MG/ML 200 ML BOTTLE IV ONE (08:00)
[2017-10-11] MEDS ORDERED: Iohexol 350mgl/ml 50 ML ONE (08:00)
[2017-10-11] MEDS ORDERED: HEPARIN SODIUM/NS 2,000 ML IV ONE (08:01)
[2017-10-11] MEDS ORDERED: Midazolam 2 MG/2 ML VIAL ONE ×2 (09:31→09:44)
[2017-10-11] MEDS ORDERED: Sodium Chloride 0.9% 1,000 ML IV SCH (10:30)
[2017-10-11 11:06] VITALS: O2SAT 100
--- NOTE | 2017-10-11 12:03 | CP.PCM.PN ---
<Sae Desir - Last Filed: 10/11/17 17:22> Subjective - Date & Time of Evaluation Date of Evaluation: 10/11/17 Time of Evaluation: 06:00 - Subjective Subjective: Patient seen and evaluated bedside. No acute issues overnight. Patient denies any shortness of breath, chest pain, or any other complaints. Aware of cath procedure today. Objective - Vital Signs/Intake and Output Vital Signs (last 24 hours): Temp Pulse Resp BP Pulse Ox 98.1 F 75 18 136/91 H 100 10/11/17 06:00 10/11/17 11:45 10/11/17 11:45 10/11/17 11:45 10/11/17 10:45 Intake and Output: 10/11/17 10/11/17 06:59 18:59 Intake Total 240 Output Total 900 Balance -660 - Medications Medications: Current Medications Acetaminophen (Tylenol 325mg Tab) 650 mg PO Q4H PRN PRN Reason: Pain, Mild (1-3) Aspirin (Ecotrin) 81 mg PO DAILY [facility] Clopidogrel Bisulfate (Plavix) 75 mg PO DAILY [facility] Famotidine (Pepcid) 40 mg PO HS [facility] Last Admin: 10/10/17 22:37 Dose: 40 mg Folic Acid (Folic Acid) 1 mg PO DAILY [facility] Last Admin: 10/11/17 11:25 Dose: 1 mg Furosemide (Lasix) 40 mg PO DAILY [facility] Last Admin: 10/11/17 11:26 Dose: 40 mg Sodium Chloride (Sodium Chloride 0.9%) 1,000 mls @ 100 mls/hr IV .Q10H [facility] Stop: 10/11/17 16:31 Last Admin: 10/11/17 10:45 Dose: 100 mls/hr Ipratropium [place] (Atrovent) 0.5 mg IH [id number] [facility] Last Admin: 10/11/17 08:30 Dose: Not Given Levalbuterol HCl (Xopenex) 1.25 mg IH [id number] [facility] Last Admin: 10/11/17 08:30 Dose: Not Given Lorazepam (Ativan) 1 mg IVP Q6H PRN; Protocol PRN Reason: Symptoms of alcohol withdrawl Losartan Potassium (Cozaar) 100 mg PO DAILY [facility] Metoprolol Tartrate (Lopressor) 25 mg PO BID [facility] Last Admin: 10/11/17 11:26 Dose: 25 mg Multivitamins (Thera Tab) 1 tab PO 0800 [facility] Last Admin: 10/11/17 11:26 Dose: 1 tab Nicotine (Nicoderm Cq) 1 patch TD DAILY PRN PRN Reason: URGE TO SMOKE Last Admin: 10/07/17 09:51 Dose: 1 patch Potassium Chloride (K-Dur 20 Meq Er Tab) 30 meq PO BRK [facility] Last Admin: 10/11/17 11:24 Dose: 30 meq Thiamine HCl (Vitamin B1 Tab) 100 mg PO DAILY [facility] Last Admin: 10/11/17 11:26 Dose: 100 mg - Labs Labs: 10/11/17 06:45 10/11/17 06:45 - Constitutional Appears: Non-toxic, No Acute Distress - Head Exam Head Exam: NORMAL INSPECTION, NORMOCEPHALIC - Eye Exam Eye Exam: EOMI, Normal appearance - ENT Exam ENT Exam: Mucous Membranes Moist - Respiratory Exam Respiratory Exam: Clear to Ausculation Bilateral, NORMAL BREATHING PATTERN - Cardiovascular Exam Cardiovascular Exam: REGULAR RHYTHM, +S1, +S2 - Neurological Exam Neurological Exam: Alert, Awake, Oriented x3 Assessment and Plan - Assessment and Plan (Free Text) Assessment: Patient is a 62 year old male with no significant past medical history who was admitted for evaluation and treatment of SOB secondary to chf and possible copd exacerbation found to have HTN emergency. Plan: Hypertensive Emergency - BP controlled - norvasc 10 and lopressor 25 bid - lasix 40 PO daily CHF Exacerbation - cxr on admission severe cardiomegaly, severe pulmonary venous congestion concerning for chf, bibaslier airway diseases can not r/o pne - repeat cxr showed decreased vascular congestion - HR and BP reviewed, trended, and appreciated - bnp 6330 - strict i and o - daily weight - lasix 40 PO daily - ECHO EF of 30%, mild concentric left ventricular hypertrophy, moderate TR and pulm HTN - cardiology consulted-nuclear stress test positive, cardiac cath today COPD Exacerbation-resolved - xopenox and atorvent q4 scheduled - oxygen supplementation 2 L via NC - abg reviewed and appreciated Ethanol Abuse, Potential Withdrawal-resolved - no evidence of withdrawals currently - CIWA - ETOH level low - high risk fall precautions - ativan 1mg q6 prn withdrawal symptoms, - multivitamin, thiamine, and folate supplement Anemia - Hgb reviewed and appreciated, stable - continue monitor closely via CBC Tobacco Abuse - nicotine patch offered - smoking cessation advised - patient education provided on dangers of tobacco abuse Prophylaxis - DVT ppx- scds - GI ppx- famotidine <Mary Sethi - Last Filed: 10/13/17 08:45> Objective - Vital Signs/Intake and Output Vital Signs (last 24 hours): Temp Pulse Resp BP Pulse Ox 98.1 F 67 20 122/53 L 100 10/12/17 18:00 10/12/17 18:00 10/12/17 18:00 10/12/17 18:00 10/12/17 05:20 - Labs Labs: 10/12/17 06:00 10/12/17 06:00 Attending/Attestation - Attestation I have personally seen and examined this patient.: Yes I have fully participated in the care of the patient.: Yes I have reviewed all pertinent clinical information, including history, physical exam and plan: Yes Notes (Text): 10/13/17 08:43 Patient was seen and examined with biomedical analytical scientist.Agreed with assessment and plan. 62 year old male with PMH of smoking and alcohol abuse was admitted with shortness of breath. Probnp was elevated. CXR showed severe pulmonary venous congestion. He was started on iv lasix for acute CHF exacerbation. Echocardiogram reviewed which shows EF 25-30%.His symptoms improved and he was switched to po lasix .He is euvolemic .He underwent stress test that showed fix mario septal and inferior wall defect. Patient underwent cardiac catherization today that ischemic CMP, underwent mid LAD stenting.He is stable after the procedure. We will monitor in telemetry. Blood pressure is better controlled with current medication. He was counselled on alcohol abstinence.There is no sign of alcohol withdrawal at this time. Management plan was discussed in detail with patient .Education was provided.Need reinforcement.
--- NOTE | 2017-10-11 13:51 | CARDCATH ---
PROCEDURE DATE: 10/11/2017 CARDIAC CATHETERIZATION REPORT PROCEDURES: 1. Selective left and right coronary angiography. 2. Left ventriculography. 3. Right heart catheterization. 4. Percutaneous coronary intervention of mid left anterior descending with drug-eluting stents. 5. Right femoral arteriography. 5. AngioSeal deployment. HISTORY: This is a 62-year-old man admitted with worsening exertional dyspnea. A stress test showed LV dysfunction and fixed defects. Given all of the above, cardiac catheterization was advised. INDICATIONS: Exertional dyspnea and abnormal stress test. FINDINGS: HEMODYNAMICS: The right heart pressures were as follows: The RA pressure was 2. The RV pressure was 25/2. The PA pressure was 28/10 with pulmonary capillary wedge pressure was 12. The cardiac index by thermodilution were 3.0 liters per minute and 1.8 liters per minute per meter square respectively. CORONARY ANATOMY: 1. The left main stem was normal. 2. The left anterior descending artery had mild irregularities proximally and a complex 95% stenosis in the mid portion at the takeoff of the septal perforators. Beyond this severe lesion, there was 50% stenosis present. The first diagonal branch was moderate to large size and then 50% lesion in the proximal segment. 3. Left circumflex artery gave raise to 1 large obtuse marginal branch, which had a 60% stenosis in his proximal segment. 4. The right coronary artery was moderate sized and dominant. This had a 50% lesion proximally and several 50% lesions in the mid or early distal segment of the vessel. The posterolateral branch and PDA were fairly small. LEFT VENTRICULOGRAPHY: A hand injection was performed in the left ventricle. This revealed evidence of moderate global hypokinesis with an overall ejection fraction of 35%. There is no aortic valve gradient noted on catheter pullback. Mitral regurgitation was not assessed. CORONARY INTERVENTION: Given the above findings, attempted PCI of the LAD was then performed. A 3000 units of intravenous heparin was administered and the ACT was rated at 3000 seconds during the procedure. A 3.5 EBU guide catheter was used to cannulate the left main stem. The lesion in the LAD was successfully crossed with the use of Venus wire. Following this, initial inflation was performed with the use of 2.0 x 12 mm balloon. Attempts were then made to advance a 2.75 x 22 mm Resolute drug-eluting stent; however, the stent balloon would not advance beyond at the side of the lesion. The stent balloon was then removed and the 2.75 x 15 mm balloon was advanced at the side of the lesion and inflated to 10 atmospheres for 30 seconds. Following this, balloon was removed and the previously mentioned 2.75 x 22 mm Resolute drug-eluting stent was advanced into the side lesion, inflated to 10 atmospheres for 45 seconds. The stent balloon was then removed and there appeared to be evidence of a edge dissection in the distal end of the stent in the region of the 50% stenosis. This was then treated with advancement of a 2.5 x 12 mm Resolute drug-eluting stent, which was positioned overlapping the previously placed stent. This is inflated to 12 atmospheres for 45 seconds. The balloon was then withdrawn to the overlap segment and inflated to 18 atmospheres for 20 seconds. There was 0% residual stenosis following the intervention. DAYANNA grade flow was increased from II and III, from before and after the procedure. RIGHT FEMORAL ARTERIOGRAPHY: A right femoral arteriogram was performed in the JORGE projection. This revealed no evidence of significant disease and appropriate level of arterial puncture. The puncture site was then closed with deployment of a AngioSeal device. CONCLUSION: 1. Severe mid left anterior descending stenosis. 2. Moderate diagonal circumflex and right coronary artery disease. 3. Moderate to severely reduced left ventricular systolic dysfunction. 4. Successful percutaneous coronary intervention of mid left anterior descending as described above. RECOMMENDATIONS: Aspirin and Plavix therapy will be continued for at least one year. Continue risk factor control would be advised. Smoking abstinence has been encouraged. Standard therapy with beta-blockers and statins will be advised as well. Joel Gould MD
--- NOTE | 2017-10-11 15:02 | PN ---
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 He is tentatively scheduled for a cardiac catheterization today. Denies any chest pain or dyspnea. CURRENT MEDICATIONS: Include amlodipine 10 mg daily, Ativan p.r.n., Atrovent inhaler, folic acid, potassium, Lasix 40 mg daily, metoprolol 25 mg b.i.d., NicoDerm patch, Pepcid 40 mg daily. OBJECTIVE: GENERAL: He is a middle-aged male, who appears comfortable at rest. VITAL SIGNS: Blood pressure is 128/98 with a pulse of 76 and sinus, respirations are 16. He is afebrile. HEENT: No JVD. CHEST: Bilateral scattered rhonchi. HEART: PMI displaced laterally with soft tones noted. ABDOMEN: Soft, nontender, normoactive bowel sounds. EXTREMITIES: No edema. DIAGNOSTIC DATA: Potassium is 4.3, BUN and creatinine of 17 and 1.0. White count 4.0, hemoglobin 14.5, hematocrit 42.6 with platelet count 276,000. IMPRESSION: 1. Decompensated congestive heart failure, acute on chronic, clinically improved. 2. Accelerated hypertension, clinically improved. 3. Evidence of cardiomyopathy on stress testing, unclear if this is dilated or ischemic in nature. 4. History of alcohol and tobacco abuse. RECOMMENDATIONS: The patient will undergo cardiac catheterization and possible coronary intervention if suitable anatomy is found. Further recommendation will be made based on those findings. Alcohol and tobacco abstinence should be continued. Joel Gould MD
--- NOTE | 2017-10-11 15:46 | CARD ---
APPROVED REPORT EKG Measurement Heart [id number] <Conclusion> Normal sinus rhythm Left atrial enlargement Left ventricular hypertrophy Inferior infarct, age undetermined T wave abnormality, consider lateral ischemia Abnormal ECG
[2017-10-12 00:09] VITALS: RESP 20
[2017-10-12] MEDS: Levalbuterol 1.25 MG/3 ML Inhal Soln UD IH SCH ×3 (01:16→13:52)
[2017-10-12] MEDS: Ipratropium 0.02% Inhal Soln (0.5 mg/2.5 ml) UD IH SCH ×3 (01:16→13:52)
[2017-10-12 06:37] LABS: BASO # 0.01 K/mm3 (0.0-2.0); BASO % 0.2 % (0.0-3.0); EOS % 0.6 % (1.5-5.0); GRAN # 2.59 (1.4-6.5); GRAN % 53.2 % (50.0-68.0); HEMOGLOBIN 14.3 g/dL (14.0-18.0); LYMPH # 1.7 (1.2-3.4); LYMPH % 34.7 % (22.0-35.0); MEAN CELL VOLUME 94.4 fl (80.0-105.0); MEAN CORPUSCULAR HEMOGLOBIN 30.7 pg (25.0-35.0); MEAN CORPUSCULAR HGB CONC 32.5 g/dl (31.0-37.0); MEAN PLATELET VOLUME 10.1 fl (7.0-11.0); MONO # 0.6 (0.1-0.6); MONO % 11.3 % (1.0-6.0); RBC 4.66 10^6/uL (3.5-6.1); RED CELL DISTRIBUTION WIDTH 14.6 % (11.5-14.5); WHITE BLOOD COUNT 4.9 10^3/ul (4.5-11.0)
[2017-10-12 07:03] LABS: ALB/GLOB RATIO 1.2 (1.1-1.8); ALBUMIN 3.8 g/dL (3.0-4.8); ALT/SGPT 27 U/L (7-56); AST/SGOT 33 U/L (17-59); BLOOD UREA NITROGEN 20 mg/dL (7-21); CALCIUM 9.8 mg/dL (8.4-10.5); GFR AFRICAN-AMERICAN > 60; GFR NON-AFRICAN AMERICAN > 60
[2017-10-12] MEDS: Potassium Chloride 20 mEq ER Tab PO SCH (08:37)
[2017-10-12] MEDS: Multivitamin Therapeutic Tab PO SCH (08:37)
--- NOTE | 2017-10-12 09:23 | CP.PCM.PN ---
Subjective - Date & Time of Evaluation Date of Evaluation: 10/12/17 Time of Evaluation: 07:00 - Subjective Subjective: Stable on 2R. No CP or SOB. S/P cath/LAD PCI yesterday. V/S noted. RSR. PE: Lungs: clear Cor.: S1S2 Abd.: soft Ext.: no edema. Groin OK. Neuro.: alert I/O= 360/1800 recorded Labs today noted Nuclear stress report noted: Fixed A-S, Apical and inf. defects c/w MA. LV EF = 20% Cath/PCI report noted: Severe mid LAD with PCI, moderate disease in other vessels, mod/sev LVD. See report. Objective - Vital Signs/Intake and Output Vital Signs (last 24 hours): Temp Pulse Resp BP Pulse Ox 98.2 F 72 20 109/69 100 10/12/17 05:20 10/12/17 05:39 10/12/17 05:20 10/12/17 05:20 10/12/17 05:20 Intake and Output: 10/12/17 10/12/17 06:59 18:59 Intake Total 360 Output Total 1300 Balance -940 - Medications Medications: Current Medications Acetaminophen (Tylenol 325mg Tab) 650 mg PO Q4H PRN PRN Reason: Pain, Mild (1-3) Aspirin (Ecotrin) 81 mg PO DAILY [facility] Clopidogrel Bisulfate (Plavix) 75 mg PO DAILY [facility] Famotidine (Pepcid) 40 mg PO HS [facility] Last Admin: 10/11/17 22:05 Dose: 40 mg Folic Acid (Folic Acid) 1 mg PO DAILY [facility] Last Admin: 10/11/17 11:25 Dose: 1 mg Furosemide (Lasix) 40 mg PO DAILY [facility] Last Admin: 10/11/17 11:26 Dose: 40 mg Ipratropium [place] (Atrovent) 0.5 mg IH [id number] [facility] Last Admin: 10/12/17 08:07 Dose: 0.5 mg Levalbuterol HCl (Xopenex) 1.25 mg IH [id number] [facility] Last Admin: 10/12/17 08:07 Dose: 1.25 mg Lorazepam (Ativan) 1 mg IVP Q6H PRN; Protocol PRN Reason: Symptoms of alcohol withdrawl Losartan Potassium (Cozaar) 100 mg PO DAILY [facility] Metoprolol Tartrate (Lopressor) 25 mg PO BID [facility] Last Admin: 10/11/17 17:28 Dose: 25 mg Multivitamins (Thera Tab) 1 tab PO 0800 [facility] Last Admin: 10/12/17 08:37 Dose: 1 tab Nicotine (Nicoderm Cq) 1 patch TD DAILY PRN PRN Reason: URGE TO SMOKE Last Admin: 10/07/17 09:51 Dose: 1 patch Potassium Chloride (K-Dur 20 Meq Er Tab) 30 meq PO BRK [facility] Last Admin: 10/12/17 08:37 Dose: 30 meq Thiamine HCl (Vitamin B1 Tab) 100 mg PO DAILY [facility] Last Admin: 10/11/17 11:26 Dose: 100 mg - Labs Labs: 10/12/17 06:00 10/12/17 06:00 Assessment and Plan - Assessment and Plan (Free Text) Assessment: Acute Dyspnea with CHF, accelerated hypertension CCM, ischemic with severe LAD lesion with PCI 10/11/17 Daily vodka drinker Smoker Plan: ASA Plavix, min. 1 year. Continue losartan 100/day, metoprolol 25 BID, and add atorvastatin 40 Daily PO Lasix PO KCL D/C tobacco and ETOH OOB as jose d./ambulate. Reevaluate LV fx. in 3 months. Possible ICD if LV does not improve significantly.
--- NOTE | 2017-10-12 17:30 | CP.PCM.DIS ---
Provider - Provider Date of Admission: 10/06/17 01:30 Attending physician: Mary Sethi MD Consults: Cardio: Elkind Time Spent in preparation of Discharge (in minutes): 70 Hospital Course - Lab Results Lab Results: Micro Results 10/07/17 22:15 Blood Blood Culture - Preliminary NO GROWTH AFTER 4 DAYS 10/06/17 02:16 Blood Blood Culture - Final NO GROWTH AFTER 5 DAYS 10/06/17 02:16 Blood Gram Stain - Final TEST NOT PERFORMED 10/06/17 01:45 Blood S.aureus & Coag-Neg Staph PNA FISH - Final 10/06/17 01:45 Blood Blood Culture - Final Coagulase Neg Staphylococcus 10/06/17 01:45 Blood Gram Stain - Final Most Recent Lab Values WBC 4.9 10^3/ul (4.5-11.0) D 10/12/17 06:00 RBC 4.66 10^6/uL (3.5-6.1) 10/12/17 06:00 Hgb 14.3 g/dL (14.0-18.0) 10/12/17 06:00 Hct 44.0 % (42.0-52.0) 10/12/17 06:00 MCV 94.4 fl (80.0-105.0) D 10/12/17 06:00 MCH 30.7 pg (25.0-35.0) 10/12/17 06:00 MCHC 32.5 g/dl (31.0-37.0) 10/12/17 06:00 RDW 14.6 % (11.5-14.5) H 10/12/17 06:00 Plt Count 290 10^3/uL (120.0-450.0) 10/12/17 06:00 MPV 10.1 fl (7.0-11.0) 10/12/17 06:00 Gran % 53.2 % (50.0-68.0) 10/12/17 06:00 Lymph % (Auto) 34.7 % (22.0-35.0) 10/12/17 06:00 [place] % (Auto) 11.3 % (1.0-6.0) H 10/12/17 06:00 Eos % (Auto) 0.6 % (1.5-5.0) L 10/12/17 06:00 Baso % (Auto) 0.2 % (0.0-3.0) 10/12/17 06:00 Gran # 2.59 (1.4-6.5) 10/12/17 06:00 Lymph # 1.7 (1.2-3.4) 10/12/17 06:00 [place] # 0.6 (0.1-0.6) 10/12/17 06:00 Eos # 0.0 (0.0-0.7) 10/12/17 06:00 Baso # 0.01 K/mm3 (0.0-2.0) 10/12/17 06:00 pCO2 39 mm/Hg (35-45) 10/06/17 00:36 pO2 107.0 mm/Hg (80-100) H 10/06/17 00:36 HCO3 23.1 mmol/L (21-28) 10/06/17 00:36 ABG pH 7.38 (7.35-7.45) 10/06/17 00:36 ABG Total CO2 24.3 mmol.L (22-28) 10/06/17 00:36 ABG O2 Saturation 98.9 % (95-98) H 10/06/17 00:36 ABG O2 Content 18.4 ML/dl (15-23) 10/06/17 00:36 ABG Base Excess -1.8 mmol/L (-2.0-3.0) 10/06/17 00:36 ABG Hemoglobin 13.5 g/dL (11.7-17.4) 10/06/17 00:36 ABG Carboxyhemoglobin 1.9 % (0.5-1.5) H 10/06/17 00:36 POC ABG HHb (Measured) 1.1 % (0-5) 10/06/17 00:36 ABG Methemoglobin 0.6 % (0.0-3.0) 10/06/17 00:36 ABG O2 Capacity 18.6 mL/dl (16-24) 10/06/17 00:36 Hgb O2 Saturation 96.4 % (95.0-98.0) 10/06/17 00:36 FiO2 50.0 % 10/06/17 00:36 Sodium 136 mmol/L (132-148) 10/12/17 06:00 Potassium 4.6 mmol/L (3.6-5.0) 10/12/17 06:00 Chloride 102 mmol/L (98-107) 10/12/17 06:00 Carbon Dioxide 26 mmol/L (21-33) 10/12/17 06:00 Anion Gap 13 (10-20) 10/12/17 06:00 BUN 20 mg/dL (7-21) 10/12/17 06:00 Creatinine 1.1 mg/dl (0.8-1.5) 10/12/17 06:00 Est GFR ( Amer) > 60 10/12/17 06:00 Est GFR (Non-Af Amer) > 60 10/12/17 06:00 Random Glucose 87 mg/dL (70-110) 10/12/17 06:00 Hemoglobin A1c 5.9 % (4.2-6.5) 10/06/17 06:00 Calcium 9.8 mg/dL (8.4-10.5) 10/12/17 06:00 Magnesium 1.7 mg/dL (1.7-2.2) 10/06/17 06:00 Total Bilirubin 0.7 mg/dL (0.2-1.3) 10/12/17 06:00 AST 33 U/L (17-59) 10/12/17 06:00 ALT 27 U/L (7-56) 10/12/17 06:00 Alkaline Phosphatase 112 U/L (38-126) 10/12/17 06:00 Lactate Dehydrogenase 573 U/L (333-699) 10/06/17 06:00 Total Creatine Kinase 109 U/L (35-230) 10/06/17 06:00 Troponin I 0.05 ng/mL D 10/06/17 06:00 NT-Pro-B Natriuret Pep 6330 pg/mL (0-450) H 10/06/17 00:23 Total Protein 7.0 g/dL (5.8-8.3) 10/12/17 06:00 Albumin 3.8 g/dL (3.0-4.8) 10/12/17 06:00 Globulin 3.2 gm/dL 10/12/17 06:00 Albumin/Globulin Ratio 1.2 (1.1-1.8) 10/12/17 06:00 Triglycerides 113 mg/dL (35-160) 10/06/17 06:00 Cholesterol 185 mg/dL (130-200) 10/06/17 06:00 LDL Cholesterol Direct 124 mg/dL (0-129) 10/06/17 06:00 HDL Cholesterol 36 mg/dL (29-60) 10/06/17 06:00 Alcohol, Quantitative < 10 mg/dL (0-10) 10/06/17 00:23 Hepatitis A IgM Ab Negative (NEGATIVE) 10/06/17 06:00 Hep Bs Antigen Negative (NEGATIVE) 10/06/17 06:00 Hep B Core IgM Ab Negative (NEGATIVE) 10/06/17 06:00 Hepatitis C Antibody Negative (NEGATIVE) 10/06/17 06:00 - Hospital Course Hospital Course: Patient is a 62 year old male with no significant past medical history who was admitted for evaluation and treatment of SOB secondary to chf and possible copd exacerbation found to have HTN emergency. For the Hypertensive Emergency, he was given medication. BP controlled and norvasc 10 and lopressor 25 bid were started, along with 40 lasix PO daily. cxr on admission showed severe cardiomegaly, severe pulmonary venous congestion concerning for chf. Bnp was 6330, ECHO EF of 30%, mild concentric left ventricular hypertrophy, moderate TR and pulm HTN. Cardiology was consulted and a nuclear stress test which was performed was positive and patient eventually underwent cardiac cath and had stents placed. He wa sstarted on apsirin and plavix and told to continue for a year. For COPD Exacerbation, xopenox and atorvent q4 scheduled and oxygen supplementation with 2 L via NC was given. For alcohol abuse, there was no evidence of withdrawals. He was placed on CIWA protocol, high risk fall precautions, ativan 1mg q6 prn withdrawal symptoms, and multivitamin, thiamine, and folate supplement. For tbacco abuse,nicotine patch offered, smoking cessation advised and patient education provided on dangers of tobacco abuse. He was placed on appropriate GI and DVT prophylaxis. patient was told to take all medications as prescribed. Prescribed a two week supply of six new medications, Aspirin, Lipitor, Metoprolol, Lasix, Potassium and Plavix and told to follow up with the [facility] within one week. Also told to follow up with Dr. Redman in 3 months to have an echocardiogram done. Discharge Exam - Head Exam Head Exam: NORMAL INSPECTION, NORMOCEPHALIC - Eye Exam Eye Exam: Normal appearance - Respiratory Exam Respiratory Exam: NORMAL BREATHING PATTERN - Cardiovascular Exam Cardiovascular Exam: REGULAR RHYTHM - GI/Abdominal Exam GI & Abdominal Exam: Normal Bowel Sounds - Neurological Exam Neurological exam: Alert, Oriented x3 Discharge Plan - Discharge Medications Prescriptions: Aspirin [Aspirin Chewable] 81 mg PO DAILY #14 ctb Aspirin [Ecotrin] 81 mg PO DAILY #14 tabec Atorvastatin [Lipitor] 40 mg PO HS #14 tab Atorvastatin [Lipitor] 40 mg PO DIN #14 tab Clopidogrel [Plavix] 75 mg PO DAILY #14 tab Clopidogrel [Plavix] 75 mg PO DAILY #14 tab Furosemide [Lasix] 40 mg PO DAILY #14 tab Losartan [Cozaar] 100 mg PO DAILY #14 tab Metoprolol Tartrate [Lopressor] 25 mg PO BID #28 tab Potassium Chloride [K-Dur 20 mEq ER Tab] 30 meq PO BRK #14 tab - Follow Up Plan Condition: IMPROVED Disposition: HOME/ ROUTINE Instructions: How to Stop Smoking (DC), Hypertension (DC), Hypertension (GEN), Coronary Intravascular Stent Placement (DC), Coronary Angioplasty (DC) Additional Instructions: Please take all medications as prescribed. You were prescribed a two week supply of six new medications, Aspirin, Lipitor, Metoprolol, Lasix, Potassium and Plavix. Please follow up with the [facility] within one week. You will also need to follow up with Dr. Redman in 3 months to have an echocardiogram done. If you should have new or worsening symptoms, please seek emergency medical attention as soon as possible. Referrals: Gilson Redman MD [Staff Provider] -
--- NOTE | 2017-10-12 17:57 | CARD ---
APPROVED REPORT EKG Measurement Heart [id number] <Conclusion> Normal sinus rhythm with sinus arrhythmia Possible Left atrial enlargement Left axis deviation Left ventricular hypertrophy with repolarization abnormality Inferior infarct, age undetermined Abnormal ECG
[2017-10-12 18:15] VITALS: BP 122/53; PULSE 67; TEMP 98.1
--- NOTE | 2017-10-13 09:59 | PQF CHF ---
This form is a permanent part of the medical record Dr. Gould, As you indicated in your 10/11PN "decompensated congestive heart failure, acute on chronic" please specify if it is: systolic OR diastolic OR combined---EF%=30% Please indicate your response below. Thank you. Clarification of your documentation is requested to better reflect the severity of illness and intensity of treatment of your patient. Indicators present [x] Diagnosis of CHF and/or history of CHF [x] BNP > 200 [] Imaging Finding of Pulmonary Edema /Pleural Effusions [] Fluid/Volume Overload [] Pitting edema [] Ejection Fraction < 40% (Indicative of Systolic Heart Failure) [] Ejection Fraction > 40% (Indicative of Diastolic Heart Failure) [] Dyspnea / Orthopenea / Paroxysmal Nocturnal Dyspnea [] Other: Location in the medical record that reflects the above clinical findings: [] PN Treatment Provided: [] PHYSICIAN'S RESPONSE Based on your medical judgment of the clinical indicators outlined above, are you treating this patient for a known or suspected: [] Acute CHF [] Systolic [] Diastolic [] Combined [] Chronic CHF [] Systolic [] Diastolic [] Combined [] Acute on Chronic CHF [x]Systolic [] Diastolic [] Combined [] CHF due hypertension [] Acute systolic []Chronic systolic [] Acute/ chronic systolic [x] Other, please indicate: [CAD] [] If Unable to Determine, please check the box, sign and date. Present On Admission (POA) Indicator: [x] Present at the time of admission [] Not present at the time of admission [] Clinically Undetermined In responding to this query, please exercise your independent professional judgment. The fact that a question is asked does not imply that any particular answer is desired or expected. Thank you for your clarification on this documentation. If you have any questions please call:[ ] * Thank you, [ ]SAI CARRtower equipment installer ANGELES
== END 2017-10-12 18:19 | disposition home or self-care (01) | DRG 854 ==
LOC: ED 23:39 → ERH 10-06 01:30 → 2RSO 10-06 03:04
PROVIDERS: ADMIT Hospitalist; ATTEND Internal Medicine
PROC: 027034Z Dilation of Coronary Artery, One Artery with Drug-eluting Intraluminal Device, Percutaneous Approach (ICD-10-PCS; principal; 2017-10-11)
PROC: 4A023N8 Measurement of Cardiac Sampling and Pressure, Bilateral, Percutaneous Approach (ICD-10-PCS; 2017-10-11)
PROC: B2151ZZ Fluoroscopy of Left Heart using Low Osmolar Contrast (ICD-10-PCS; 2017-10-11)
PROC: B2111ZZ Fluoroscopy of Multiple Coronary Arteries using Low Osmolar Contrast (ICD-10-PCS; 2017-10-11)
DX: I11.0 Hypertensive heart disease with heart failure (principal); I50.23 Acute on chronic systolic (congestive) heart failure; J44.1 Chronic obstructive pulmonary disease with (acute) exacerbation; I42.9 Cardiomyopathy, unspecified; I16.1 Hypertensive emergency; I27.20 Pulmonary hypertension, unspecified; I25.10 Atherosclerotic heart disease of native coronary artery without angina pectoris; F17.210 Nicotine dependence, cigarettes, uncomplicated; D64.9 Anemia, unspecified; F10.10 Alcohol abuse, uncomplicated